=== PATIENT | male | born 1935 | race Caucasian/White ===

== ENCOUNTER → 2020-12-03 12:47 | Outpatient (BNVA) | payer MEDICARE, OTHER, SELFPAY | PROVIDERS: Visit Provider Urology | DX: N39.0 Urinary tract infection, site not specified (principal); N40.1 Benign prostatic hyperplasia with lower urinary tract symptoms; R31.0 Gross hematuria | CPT/HCPCS: 51798; 99212 ==

== ENCOUNTER → 2021-06-03 10:59 | Outpatient (BNVA) | payer MEDICARE, OTHER, SELFPAY | PROVIDERS: PCP Family Medicine; Visit Provider Urology | DX: N40.1 Benign prostatic hyperplasia with lower urinary tract symptoms (principal); C67.9 Malignant neoplasm of bladder, unspecified | CPT/HCPCS: 52000; 99212 ==

== ENCOUNTER 2021-08-08 08:28 | Day surgery (SDC) | payer MEDICARE, OTHER, SELFPAY ==
[2021-08-04 12:17] VITALS: BMI 30.4
[2021-08-04 12:25] VITALS: BP 126/68; PULSE 87; RESP 18; O2SAT 99
--- NOTE | 2021-08-04 12:33 | HO.ANESPROP2 ---
Documented by User: Pooja Mart NP 08/05/21 12:04 HPI - Anesthesia Eval Consult details Narrative: 86yo M for Laser Ablation Prostate w/Green Light Cardiac cleared Eliquis for PAF Hearing aids PMFSH Active Problems Active Problems: All Active Problems (Updated 08/03/21 @ 14:02 by Valarie Bennett RN) Recurrent UTI (urinary tract infection) (Acute) Bladder cancer (Acute) Benign prostatic hyperplasia with lower urinary tract symptoms (Acute) Gross hematuria (Acute) Past Medical History 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 GERD (gastroesophageal reflux disease) Gout Gross hematuria History of ETOH abuse HTN (hypertension) Hx of bladder cancer Hx of gastrointestinal hemorrhage Hyperlipidemia Idiopathic peripheral neuropathy Lumbar spinal stenosis Malignant neoplasm of dome of urinary bladder MRSA (methicillin resistant Staphylococcus aureus) CLAUDE (obstructive sleep apnea) Osteoporosis Poor urinary stream Primary osteoarthritis of right shoulder Rheumatoid arthritis Rotator cuff impingement syndrome Unsteady gait Family History Family history of problems with anesthesia: No Surgical History Surgical History History of back surgery History of left knee replacement History of total right knee replacement Hx of appendectomy Hx of colonoscopy Hx of tonsillectomy Status post reverse total arthroplasty of left shoulder History of Problems with Anesthesia: No Social History Social History Household Members Other:: son Are you a primary home health care social worker to a significant other at home: No Do you presently have visiting nurse or other home services: No Patient Tobacco Use Status: Former Tobacco user Quit Date: 1962 Tobacco use type: Cigarette Use of substances other than those prescribed or required for medical reasons: No Have you been hit, kicked, punched, or otherwise hurt by someone within the past year? If so, by whom?: No Are you DNR?: No Advance Directives: No (will bring DOS) Advance Directives Information Provided: No Advance Directives on File: No Recently lost weight without trying: No Narrative Narrative: No recent illness. No chest pain/SOB with minimal activity - ambulates with a cane or w/c Meds Allergies Allergy/AdvReac Type Severity Reaction Status Date / Time No Known Allergies Allergy Verified 08/04/21 12:12 Home Medications Medication Instructions Recorded Confirmed Last Taken Type apixaban 5 mg tablet 5 mg PO BID 12/03/20 08/04/21 Unknown History finasteride 5 mg tablet 5 mg PO DAILY 12/03/20 08/04/21 Unknown History metoprolol succinate 50 mg 150 mg PO DAILY 12/03/20 08/04/21 Unknown History tablet,extended release 24 hr pantoprazole 40 mg tablet,delayed 40 mg PO DAILY 12/03/20 08/04/21 Unknown History release tamsulosin 0.4 mg capsule 0.8 mg PO DAILY@1700 12/03/20 08/04/21 Unknown History Black 3 1,000 mg PO DAILY 08/04/21 08/04/21 Unknown History acetaminophen 325 mg tablet 650 mg PO Q6H PRN 08/04/21 08/04/21 Unknown History allopurinol 300 mg tablet 300 mg PO DAILY 08/04/21 08/04/21 Unknown History cholecalciferol (vitamin D3) 25 25 mcg PO DAILY 08/04/21 08/04/21 Unknown History mcg (1,000 unit) tablet (Vitamin D3) gabapentin 400 mg tablet 400 mg PO BEDTIME 08/04/21 08/04/21 Unknown History lidocaine TOPICAL DAILY 08/04/21 Unknown History oxycodone-acetaminophen 5 mg-325 1 tab PO Q8H PRN 08/04/21 08/04/21 Unknown History mg tablet (Percocet) pravastatin 20 mg tablet 20 mg PO BEDTIME 08/04/21 08/04/21 Unknown History sennosides 8.6 mg-docusate sodium 1 tab-cap PO BEDTIME PRN 08/04/21 08/04/21 Unknown History 50 mg tablet (Colace 2-In-1) Exam Exam Date and Time: August 04, 2021 1233 Height,Weight and Vital Signs: Height 5 ft 8 in Weight 90.718 kg Last Vital Signs Pulse 87 08/04/21 12:25 Resp 18 08/04/21 12:25 BP 126/68 08/04/21 12:25 Pulse Ox 99 08/04/21 12:25 Pertinent Lab Results Pertinent Lab Results: CBC and BMP from outside facility 06/2021 WNL Narrative Narrative: EKG 07/2021 afib @ 86, RBBB, PVCs, nonspecifict ST-T wave abnormalities ECHO 08/2020 Mild conc LVH Overall LV systolic function is normal with EF 55-60% Cannot assess diastolic function d/t afib LA severely dilated Mild (DALE 1.7cm2) Mild MR No evidence of pulm htn No change c/w 05/2020 ECHO Airway TM Dist: >3cm Neck ROM: Full (OA with tolerable pain) Denture: Lower Loose/Missing/Broken Teeth: No (Upper permanent bridge) Heart: RRR Lungs: CTAB Assessment and Plan Assessment Anesthesia Assessment: Anesthesia Plan Discussed and PAT Visit Final Anesthetic Review Family History of Problems with Anesthesia: No History of Problems with Anesthesia: No Documented by User: Richa Ko MD 08/08/21 10:24 HPI - Anesthesia Eval Consult details Narrative: 86yo M for Laser Ablation Prostate w/Green Light Cardiac cleared Eliquis for PAF. Last dose 08/05/21 Hearing aids PMFSH Active Problems Active Problems: All Active Problems (Updated 08/03/21 @ 14:02 by Valarie Bennett, RN) Recurrent UTI (urinary tract infection) (Acute) Bladder cancer (Acute) Benign prostatic hyperplasia with lower urinary tract symptoms (Acute) Gross hematuria (Acute) Aortic stenosis. Denies dizziness, faintness, chest pain CLAUDE. Has not used/needed CPAP in over 40years. 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 GERD (gastroesophageal reflux disease) Gout Gross hematuria History of ETOH abuse HTN (hypertension) Hx of bladder cancer Hx of gastrointestinal hemorrhage Hyperlipidemia Idiopathic peripheral neuropathy Lumbar spinal stenosis Malignant neoplasm of dome of urinary bladder MRSA (methicillin resistant Staphylococcus aureus) CLAUDE (obstructive sleep apnea) Osteoporosis Poor urinary stream Primary osteoarthritis of right shoulder Rheumatoid arthritis Rotator cuff impingement syndrome Unsteady gait Surgical History Surgical History History of back surgery History of left knee replacement History of total right knee replacement Hx of appendectomy Hx of colonoscopy Hx of tonsillectomy Status post reverse total arthroplasty of left shoulder Social History Social History Household Members Other:: son Are you a primary home health care social worker to a significant other at home: No Do you presently have visiting nurse or other home services: No Patient Tobacco Use Status: Former Tobacco user Quit Date: 1962 Tobacco use type: Cigarette Use of substances other than those prescribed or required for medical reasons: No Have you been hit, kicked, punched, or otherwise hurt by someone within the past year? If so, by whom?: No Are you DNR?: No Advance Directives: No (will bring DOS) Advance Directives Information Provided: No Advance Directives on File: No Recently lost weight without trying: No Meds Allergies Allergy/AdvReac Type Severity Reaction Status Date / Time No Known Allergies Allergy Verified 08/04/21 12:12 Home Medications Medication Instructions Recorded Confirmed Last Taken Type apixaban 5 mg tablet 5 mg PO BID 12/03/20 08/04/21 Unknown History finasteride 5 mg tablet 5 mg PO DAILY 12/03/20 08/04/21 Unknown History metoprolol succinate 50 mg 150 mg PO DAILY 12/03/20 08/04/21 Unknown History tablet,extended release 24 hr pantoprazole 40 mg tablet,delayed 40 mg PO DAILY 12/03/20 08/04/21 Unknown History release tamsulosin 0.4 mg capsule 0.8 mg PO DAILY@1700 12/03/20 08/04/21 Unknown History Black 3 1,000 mg PO DAILY 08/04/21 08/04/21 Unknown History acetaminophen 325 mg tablet 650 mg PO Q6H PRN 08/04/21 08/04/21 Unknown History allopurinol 300 mg tablet 300 mg PO DAILY 08/04/21 08/04/21 Unknown History cholecalciferol (vitamin D3) 25 25 mcg PO DAILY 08/04/21 08/04/21 Unknown History mcg (1,000 unit) tablet (Vitamin D3) gabapentin 400 mg tablet 400 mg PO BEDTIME 08/04/21 08/04/21 Unknown History lidocaine TOPICAL DAILY 08/04/21 Unknown History oxycodone-acetaminophen 5 mg-325 1 tab PO Q8H PRN 08/04/21 08/04/21 Unknown History mg tablet (Percocet) pravastatin 20 mg tablet 20 mg PO BEDTIME 08/04/21 08/04/21 Unknown History sennosides 8.6 mg-docusate sodium 1 tab-cap PO BEDTIME PRN 08/04/21 08/04/21 Unknown History 50 mg tablet (Colace 2-In-1) Exam Height,Weight and Vital Signs: Height 5 ft 8 in Weight 90.718 kg Last Vital Signs Pulse 87 08/04/21 12:25 Resp 18 08/04/21 12:25 BP 126/68 08/04/21 12:25 Pulse Ox 99 08/04/21 12:25 Vital signs 08/08/21 Temp 98.5 Pulse 74 Resp 12-18 BP 149/65 Pulse Ox 99% Airway Mallampati Class: II Assessment and Plan Final Anesthetic Review NPO: Yes ASA Class: III Final Preanesthetic Review: No Changes in Pt Med Stat, Meds/Allgs Chart Reviewed, Consent Obtained/Reviewed and Anes Risks/Benef Reviewed Patient Risk: Intermediate Procedure Risk: Low Assessment/Block/Sedation in SS: Assess/Block/Sedation-SS Anesthetic Plan Anesthetic Plan: GA Disposition: Standard PACU
[2021-08-08] MEDS: levoFLOXacin/D5W 500 MG/100 ML PIGGYBACK 100 MG IV (09:23)
[2021-08-08] MEDS: Lactated Ringers 1,000 ML 50 ML IVCONT (09:24)
--- NOTE | 2021-08-08 11:20 | MHC.SHP ---
Pre-Procedural Eval Section A Date of Service: 08/08/21 Section B Chief Complaint: benign prostatic hyperplasia Details of Present Illness: Recurrent BPH with prostate stones Relevant Social History: None Present Medications: see Short Stay Collaborative assessment Medical History: Significant History History of Previous Operations: Relevant previous surgery/procedure and date(s) Allergies: Allergies Allergy/AdvReac Type Severity Reaction Status Date / Time No Known Allergies Allergy Verified 08/04/21 12:12 Review of Systems Sugical H&P ROS: Negative: Constitution, Cardiovascular, Respiratory, Neurological, Psychiatric, Hem-Onc, Allergic/Immunologic, Gastrointestinal, Genitourinary, Musculoskeletal, Integumentary, Endocrine and Eyes/Ears/Nose/Throat Exam Surgical H&P Exam: Normal: HEENT, Normal: Heart, Normal: Lungs, Normal: Extremities, Normal: Abdomen, Normal: Skin and Normal: Neurological Plan Diagnosis/Plan: Unchanged (Removal of prostate stones and GreenLight laser prostatectomy) I have reviewed the history and physical and performed a pertinent physical examination on my patient. No changes have occurred unless specified.
[2021-08-08 11:35] VITALS: BP 121/72; PULSE 82; RESP 16; TEMP 36.1; O2SAT 99
[2021-08-08 11:40] VITALS: BP 134/79; PULSE 78; RESP 17; O2SAT 100
[2021-08-08 11:45] VITALS: BP 143/86; PULSE 74; RESP 16; O2SAT 100
[2021-08-08 11:50] VITALS: BP 144/76; PULSE 78; RESP 18; O2SAT 100
[2021-08-08 12:05] VITALS: BP 142/83; PULSE 77; RESP 18; O2SAT 96
[2021-08-08 12:20] VITALS: BP 147/65; PULSE 78; RESP 18; TEMP 36.3; O2SAT 96
--- NOTE | 2021-08-10 08:27 | W.PM.OPN ---
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 Prior prostate procedure approximately 5 years ago. Cystoscopy in office showed regrowth of right lateral lobe with significant calcification on the surface of the prostate. Recommendation for GreenLight laser prostate ablation with removal of prostate stones. Procedure: After informed consent was verified the patient was brought to the operating room and placed in a supine position. Anesthesia was administered per protocol. Patient was placed in modified dorsal lithotomy position and prepped and draped in a sterile fashion. Safety pause time-out was confirmed. Antibiotics have been given. Twenty-four [place]uran laser cystoscope was inserted per urethra. No abnormalities found the anterior posterior urethra. The bladder was filled on both ureteric orifices were seen in normal position away from our area of interest. The right lateral lobe had regrown. There was significant calcification on the prostate approximately 1 cm in diameter. Using the GreenLight laser the tissue was ablated behind the calcified area. The calcified area was freed and floated into the bladder. The right lateral lobe was then fully ablated. The median lobe was no longer present in had minimal regrowth. The GreenLight laser was used to make incision on the left portion of the bladder neck at the 3 o'clock position in order to allow full opening of the bladder neck. Both ureteric orifice were seen in Hutch diverticulum bilateral. The bladder was large and capacious. Once the prostate areas had been ablated we had used 85,000 kilojoules. Using a sure catch kidney stone basket the 1 cm calcification that had been freed from the prostate was removed. A 2nd calcification in had also floated into the bladder and this was removed as well. A 22 [place] 30 cc balloon Clarke catheter was placed over stylet into the bladder. Clear efflux was obtained. 30 cc was placed in the balloon and gentle traction was placed. A snap was used to hold tension once the patient will be moved and transported. Once transportation its finish this novel be removed. A belladonna and opiate suppository was placed for postprocedure pain management. He tolerated procedure well was extubated in the operating and transferred in a stable condition to the recovery area. Pathology: Prostate tissue, calcifications Drains: Clarke catheter
== END 2021-08-08 13:05 | disposition home or self-care (01) ==
PROVIDERS: PCP Family Medicine; Visit Provider Urology
PROC: (CPT 52648; principal; 2021-08-08 10:10)
DX: N40.1 Benign prostatic hyperplasia with lower urinary tract symptoms (principal); N32.0 Bladder-neck obstruction; N42.89 Other specified disorders of prostate; N21.0 Calculus in bladder
CPT/HCPCS: 52649; 88305; J1100; J1790; J1956; J2370; J2405; J3010

== ENCOUNTER → 2021-08-11 09:27 | Outpatient (BNVA) | payer MEDICARE, OTHER, SELFPAY | PROVIDERS: PCP Family Medicine; Visit Provider Urology | DX: N40.1 Benign prostatic hyperplasia with lower urinary tract symptoms (principal); N39.0 Urinary tract infection, site not specified | CPT/HCPCS: 51700; 51798 ==

== ENCOUNTER → 2021-08-19 09:36 | Outpatient (BNVA) | payer MEDICARE, OTHER, SELFPAY | PROVIDERS: PCP Family Medicine; Visit Provider Urology | DX: N40.1 Benign prostatic hyperplasia with lower urinary tract symptoms (principal) | CPT/HCPCS: 51700; 51798 ==

== ENCOUNTER 2021-10-07 09:11 | Inpatient (IN) | payer MEDICARE, OTHER, SELFPAY ==
[2021-10-07] VITALS (7 sets, daily range): BP systolic 111–138; BP diastolic 54–71; PULSE 85–102; RESP 14–18; TEMP 36.5–36.8; O2SAT 100; BMI 28.4
--- NOTE | ~2021-10-07 | CT_ITS ---
EXAMINATION: CT CHEST WITHOUT CONTRAST CLINICAL INFORMATION: Acute mental status change COMPARISON: None TECHNIQUE: Multidetector volumetric CT imaging of the chest was done. Axial MIP volume rendering provided. Sagittal and coronal reformatted images were obtained. This CT examination was performed using dose optimization techniques as appropriate, variously including the following: *Automated exposure control *Adjustment of mA and/or kV according to patient size (this includes techniques or standardized protocols for targeted exams where dose is matched to indication/reason for exam; i.e. extremities or head) *Use of iterative reconstruction technique DLP: [address] chest, abdomen and pelvis mGy-cm FINDINGS: LUNGS: Evaluation of the lungs is limited due to artifact from respiratory motion. There are patchy groundglass attenuation infiltrates seen in the left upper lobe and superior segment of the left lower lobe. There is atelectasis or some smaller infiltrates seen in both lower lobes. MEDIASTINUM: The heart is slightly enlarged. There is coronary artery calcification and atherosclerotic disease. There is no pericardial effusion. There are no enlarged hilar or mediastinal lymph nodes. PLEURA: There is a small right pleural effusion. There is no pneumothorax. AXILLA: No chest wall mass or enlarged axillary lymph nodes are seen. UPPER ABDOMEN: Unremarkable. OSSEOUS STRUCTURES: There are multiple right-sided rib fractures of varying ages. There are lateral and posterior fractures of the right third through 10th ribs. Seventh through 10th posterior right rib fractures appear the most recent. There is extensive orthopedic hardware seen with post rods and interpedicular screws seen at T4, T5 T6 T7 T10 and T11-T12 and L1. Orthopedic hardware appears intact. There is a mild T8 vertebral body compression fracture. There are vertebroplasty changes of the T9 and T10 vertebral bodies. There is a mild T12 compression fracture. There is a left shoulder replacement. 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 CT/CT chest wo con IMPRESSION: Limited exam due to motion artifact. Nonspecific groundglass attenuation infiltrates in the left upper lobe and superior segment of the left lower lobe. Bibasilar small infiltrates or atelectasis. Small right pleural effusion. No pneumothorax. Multiple right-sided rib fractures of varying ages. Most recent rib fractures are posterior seventh through 10th rib fractures. Extensive orthopedic hardware in the thoracic spine. Fleischner guidelines were followed.
--- NOTE | ~2021-10-07 | CT_ITS ---
EXAMINATION: CT HEAD WITHOUT CONTRAST CLINICAL INFORMATION: Acute mental status change and hallux with COMPARISON: None TECHNIQUE: Contiguous axial imaging was performed from the skull base to vertex without intravenous administration of contrast. This CT examination was performed using dose optimization techniques as appropriate, variously including the following: *Automated exposure control *Adjustment of mA and/or kV according to patient size (this includes techniques or standardized protocols for targeted exams where dose is matched to indication/reason for exam; i.e. extremities or head) *Use of iterative reconstruction technique DLP: 765 mGy-cm FINDINGS: There is no evidence of an extra-axial collection. There is no evidence of intra or extra-axial hemorrhage. Ventricles and extra-axial CSF spaces are prominent suggestive of mild generalized atrophy. There is nonspecific periventricular white matter disease. No mass, mass effect or infarct is seen. Review of bone windows is normal. No skull fracture is seen. Visualized paranasal sinuses, mastoid air cells and middle ears are clear.. CT/CT head/brain wo con IMPRESSION: No acute intracranial findings. Generalized atrophy and nonstress the periventricular white matter disease.
--- NOTE | ~2021-10-07 | CT_ITS ---
EXAMINATION: CT ABDOMEN AND PELVIS WITHOUT CONTRAST CLINICAL INFORMATION: Acute mental status change. Recent fall. COMPARISON: None TECHNIQUE: Multidetector volumetric imaging was performed from the superior aspect of the liver through the pubic symphysis. Sagittal and coronal reformatted images were obtained on the technologist's workstation. This CT examination was performed using dose optimization techniques as appropriate, variously including the following: *Automated exposure control *Adjustment of mA and/or kV according to patient size (this includes techniques or standardized protocols for targeted exams where dose is matched to indication/reason for exam; i.e. extremities or head) *Use of iterative reconstruction technique DLP: 1148 mGy-cm FINDINGS: LUNG BASES: The visualized lung bases are unremarkable. LIVER, GALLBLADDER, AND BILIARY TREE: The liver is normal in size, shape, and attenuation. No focal hepatic lesion or biliary ductal dilatation is present. The gallbladder is slightly distended measuring 5 x 12 cm in dimension. There is question of a small gallstone in the neck of the gallbladder or cystic duct, for example coronal reconstructed image 44 measuring 5 mm. PANCREAS: Unremarkable. SPLEEN: Unremarkable. ADRENAL GLANDS: Unremarkable. KIDNEYS AND URETERS: There is a nephrostomy tube in the left kidney. There is a lesion exophytic to the anterior lower pole left kidney that measures 1 cm. This is difficult to characterize. The right kidney is unremarkable. BLADDER: There is a Clarke catheter seen in the pelvis. Location is uncertain. This may be in an empty bladder with focal right lateral and inferior bladder wall thickening and the prostate and gland having been removed. GASTROINTESTINAL TRACT: There is diverticulosis of the colon. There are fluid-filled loops of small and large bowel suggestive of an ileus. There is no evidence of free air or free fluid or obstruction. The appendix is not seen. ABDOMINAL WALL: There is a large high attenuation soft tissue mass in the left rectus muscle suggestive of a hematoma. This measures 6 x 10 x 9 cm. There are bilateral inguinal hernias containing fat. LYMPH NODES: Normal. VASCULAR: There is evidence of atherosclerotic disease. PELVIC VISCERA: There is a high attenuation soft tissue mass in the left pelvis suggestive of a hematoma. This measures 7 x 10 x 9 cm in transverse AP and longitudinal dimension. OSSEOUS STRUCTURES: There is extensive orthopedic hardware in the lumbar spine and bilateral iliac bones from L1 to S1 with posterior fusion hardware and interpedicular screws. There is orthopedic hardware in the visualized lower thoracic spine. There are T10 and T12 vertebral body compression fracture. There are post vertebroplasty changes in the T9 and T10 vertebral bodies. CT/CT abdomen pelvis wo con IMPRESSION: Large left rectus muscle and pelvic hematomas. Clarke catheter seen in the pelvis, question position. The Clarke catheter may be positioned in an empty bladder with focal right lateral and inferior wall thickening. The prostate gland may been removed. Clinical correlation recommended. Left nephrostomy tube in satisfactory position. No hydronephrosis. Diverticulosis of the colon and fluid-filled loops of small and large bowel suggestive of an ileus. Distended gallbladder and question small gallstone.. Fleischner guidelines were followed.
--- NOTE | 2021-10-07 09:35 | ECG_ITS ---
Test Reason : AMS Blood Pressure : / mmHG Vent. Rate : 085 BPM Atrial Rate : 000 BPM P-R Int : 000 ms QRS Dur : 146 ms QT Int : 392 ms P-R-T Axes : 000 034 -45 degrees QTc Int : 466 ms Atrial fibrillation Right bundle branch block T wave abnormality, consider inferior ischemia Abnormal ECG No previous ECGs available Referred By: Verena Champagne Electronically Signed By:REECE LOUISE MD
--- NOTE | 2021-10-07 09:44 | ED.AMS ---
HPI - Altered Mental Status General Chief Complaint: Altered Mental Status Stated Complaint: ams Time Seen by Provider: 10/07/21 09:31 Source: patient and old records reviewed Mode of arrival: EMS Limitations: no limitations History of Present Illness HPI narrative: [place] [facility] [place] from [facility] as a trauma acute rib fractures, R sided hemothoraax, manubrial fx - ended up finding ESBL + UTI on meropenem completed course, developed afib with RVR - digoxin and eliquis, ileus s/p ex lap for internal hernia 09/04. ended up with hypotension on pressors had pelvic hematoma requiring transfusion 1 unit PRBCs s/p L sided nephrostomy tube for due to hydronephrosis admit to SNF on 10/02 MD complaint: altered mental status and decreased responsiveness Onset (ago): day(s) (this AM ) Timing confirmed by: caregiver Severity: moderate Consistency of symptoms: unknown Context: other (long illness at [facility] diarrhea x 2 overnight had constipation given medications) Associated symptoms: denies other symptoms Related Data Home Medications Medication Instructions Recorded Confirmed [place] 3 1,000 mg PO DAILY 08/04/21 10/07/21 gabapentin 400 mg tablet 800 mg PO BEDTIME 08/04/21 10/07/21 oxycodone-acetaminophen 5 mg-325 1 tab PO Q8H PRN 08/04/21 10/07/21 mg tablet (Percocet) pravastatin 20 mg tablet 20 mg PO BEDTIME 08/04/21 10/07/21 sennosides 8.6 mg-docusate sodium 1 tab-cap PO BEDTIME PRN 08/04/21 10/07/21 50 mg tablet (Colace 2-In-1) apixaban 5 mg tablet 5 mg PO BID 10/07/21 10/07/21 docusate sodium 100 mg capsule 100 mg PO BID 10/07/21 10/07/21 finasteride 5 mg tablet 5 mg PO DAILY 10/07/21 10/07/21 metoprolol succinate 50 mg 150 mg PO DAILY 10/07/21 10/07/21 tablet,extended release 24 hr pantoprazole 40 mg tablet,delayed 40 mg PO DAILY 10/07/21 10/07/21 release tamsulosin 0.4 mg capsule 0.4 mg PO DAILY 10/07/21 10/07/21 Previous Rx's Medication Instructions Recorded ascorbic acid (vitamin C) 1,000 mg 1 g PO DAILY 90 Days #90 tab 12/03/20 tablet methenamine hippurate 1 gram tablet 1 g PO BID 90 Days #180 tab 12/03/20 Allergies Allergy/AdvReac Type Severity Reaction Status Date / Time No Known Allergies Allergy Verified 08/04/21 12:12 Review of Systems Review of Systems: Constitutional : No Weight loss, No Fever, No Chills, No Fatigue, No Malaise ENT/Mouth : No sore throat, No Rhinorrhea Eyes: No Eye Pain, No Swelling, No Redness Cardiovascular : No Chest Pain, No SOB, No Dyspnea on Exertion, No Orthopnea, No Edema, No Palpitations Respiratory : No Cough, No Sputum, No Wheezing Gastrointestinal : No Nausea, No Vomiting, No Diarrhea, No Constipation, No abdominal Pain, No Hematochezia, No Melena Genitourinary : No Dysuria, No Urinary Frequency, No Hematuria, Musculoskeletal : No joint pain, No Myalgias, No Joint Swelling Skin : No Skin Lesions, No rash Neuro : pos Weakness, No Numbness, No Dizziness, No Headache Psych : No Anxiety/Panic, No Depression Heme/Lymph: No Bruising, No Bleeding,No Lymphadenopathy Endocrine : No Polyuria, No Polydipsia All other systems reviewed and are negative PMFSH Past Medical History Attestation statement: The following information was validated with the patient. 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 GERD (gastroesophageal reflux disease) Gout Gross hematuria History of ETOH abuse HTN (hypertension) Hx of bladder cancer Hx of gastrointestinal hemorrhage Hyperlipidemia Idiopathic peripheral neuropathy Intestinal obstruction Lumbar spinal stenosis Malignant neoplasm of dome of urinary bladder MRSA (methicillin resistant Staphylococcus aureus) CLAUDE (obstructive sleep apnea) Osteoporosis Poor urinary stream Primary osteoarthritis of right shoulder Rheumatoid arthritis Rotator cuff impingement syndrome Unsteady gait Surgical History History of back surgery History of left knee replacement History of total right knee replacement Hx of appendectomy Hx of colonoscopy Hx of tonsillectomy Status post reverse total arthroplasty of left shoulder Social History Social History Household Members Other:: son Are you a primary manager critical care unit to a significant other at home: No Do you presently have visiting nurse or other home services: No Alcohol intake: never Patient Tobacco Use Status: Former Tobacco user Quit Date: 1962 Tobacco use type: Cigarette Use of substances other than those prescribed or required for medical reasons: No Advance Directives: No Advance Directives Information Provided: No Physical Exam Vital Signs: Vital Signs: Last Vital Signs Temp 97.7 F 10/07/21 16:00 Pulse 89 10/07/21 16:00 Resp 18 10/07/21 16:00 BP 121/57 L 10/07/21 16:00 Pulse Ox 100 10/07/21 16:00 Oxygen Flow Rate 2 10/07/21 09:27 BMI result Body Mass Index 28.4 Appearance: Alert. Oriented X3. No acute distress. appears weak Eyes: Pupils equal, round and reactive to light. ENT: Pharynx moderately dry Neck: Normal inspection. Neck supple. CVS: Normal heart rate and rhythm. Pulses normal. Respiratory: No respiratory distress. Breath sounds normal. Abdomen: Soft and nontender. midline incision c/d/i. appears distended Back: L nephrostomy tube ss but some bloody drainage in tube noted site itself is c/d/i Skin: Skin warm and dry. Normal skin color. poor skin turgor. Extremities: No lower extremity edema. No calf ttp Neuro: Oriented X 3. No motor deficit. No sensory deficit. Course Course Course Narrative: empiric meropenem for HCAP has ileus H/H stable - has hematomas Message sent to Dr. Crenshaw about willard - reposition willard it is not in bladder but in prostate - RN notified Message sent to Dr. Atkins regarding CT scan - will follow no acute interventions trend H/H MDM - Altered Mental Status MDM Narrative Medical decision making narrative: 86 yo female with hx of ESBL+ UTI, nephrostomy tube for hydronephrosis L side, bladder cancer, rib fractures, afib on digoxin and eliquis, recent internal hernia and ileus requiring ex lap on 09/04 complicated stay at [facility] [place] transfusions, pressors - at this time sent by SNF who state he is unresponsive and altered on arrival here is diffusely weak but oriented x 3 and no focal deficits. At this time labs, UA, CT scan of head/chest/abdomen for ICH/infection. He is not altered or unresponsive and is talking to me without issue. Lab Data Result diagrams: 10/07/21 10:46 10/07/21 10:46 Labs: Lab Results 10/07/21 10/07/21 10/07/21 Range/Units 10:46 10:46 10:46 WBC 6.7 (4.8-10.8) X10*3/uL RBC 3.74 L (4.60-5.80) X10*6/uL Hgb 10.5 L (14.0-18.0) g/dl Hct 35.2 L (42.0-52.0) % MCV 94.1 (80.0-98.0) fL MCH 28.1 (27.0-33.0) pg MCHC 29.8 L (31.0-36.0) g/dl RDW 17.1 H (11.0-16.0) % Plt Count 392 (160-400) X10*3/uL MPV 10.2 (9.4-12.4) fL Immature Gran % (Auto) 0.6 H (0.0-0.4) % Neut % (Auto) 65.7 (45-73) % Lymph % (Auto) 16.8 L (20-40) % [place] % (Auto) 10.7 (2-11) % Eos % (Auto) 5.5 H (0-4) % Baso % (Auto) 0.7 (0-2) % Lymph # (Auto) 1.1 L (1.2-4.9) X10*3/uL [place] # (Auto) 0.7 (0.1-1.2) X10*3/uL Eos # (Auto) 0.4 (0.0-0.4) X10*3/uL Baso # (Auto) 0.1 (0.0-0.2) X10*3/uL Abs Immat Gran (auto) 0.04 H (0.00-0.03) X10*3/uL Absolute Neuts (auto) 4.4 (2.0-8.3) x10*3/uL Absolute Nucleated RBC 0.000 (0.0-0.012) X10*3/uL Nucleated RBC % (auto) 0.0 (0.0-0.2) /100WBC PT 19.6 H (9.9-13.0) SEC INR 1.7 H (0.9-1.1) APTT 40.1 H (24.1-38.0) SEC VBG pH (7.32-7.43) VBG pCO2 mmHg VBG pO2 mmHg VBG HCO3 (22-26) mmol/L VBG O2 Saturation % VBG Base Excess mmol/L Sodium 141 (135-145) mmol/L Potassium 4.6 (3.3-5.1) mmol/L Chloride 105 (96-108) mmol/L Carbon Dioxide 30 H (22-29) mmol/L Anion Gap 11 L (12-20) BUN 12 (9-16) mg/dL Creatinine 0.72 (0.5-1.4) mg/dL Estim Creat Clear Calc 84.6 Estimated GFR > 60 Random Glucose 101 (60-115) mg/dL Lactic Acid (0.5-2.0) mmol/L Calcium 8.3 L (8.4-10.2) mg/dL Magnesium 2.1 (1.6-2.6) mg/dL Total Bilirubin 0.9 (0.0-1.0) mg/dL Direct Bilirubin 0.5 (0.0-0.5) mg/dL AST 20 (5-37) U/L ALT 24 (0-40) U/L Alkaline Phosphatase 97 (39-117) U/L Troponin I High Sens (<3.5-35.0) ng/L Total Protein 5.5 L (6.5-8.0) g/dL Albumin 2.5 L (3.5-5.0) g/dL Lipase 30 (8-78) U/L Urine Color Urine Appearance Urine pH (5.0-8.0) Ur Specific [place] (1.005-1.025) Urine Protein (NEG-TRACE) MG/DL Urine Glucose (UA) (NEG) MG/DL Urine Ketones (NEG) MG/DL Urine Blood (NEG) Urine Nitrite (NEG) Ur Leukocyte Esterase (NEG) Urine RBC (0) /HPF Urine WBC (0-4) /HPF Ur Squamous Epith Cells /LPF Amorphous Sediment /LPF Urine Bacteria /LPF Urine Mucus /LPF Digoxin (0.8-2.0) ng/mL COVID-19 ([place]) (Negative) COVID-19 Clin Com Blood Type Antibody Screen 10/07/21 10/07/21 10/07/21 Range/Units 10:46 10:46 10:46 WBC (4.8-10.8) X10*3/uL RBC (4.60-5.80) X10*6/uL Hgb (14.0-18.0) g/dl Hct (42.0-52.0) % MCV (80.0-98.0) fL MCH (27.0-33.0) pg MCHC (31.0-36.0) g/dl RDW (11.0-16.0) % Plt Count (160-400) X10*3/uL MPV (9.4-12.4) fL Immature Gran % (Auto) (0.0-0.4) % Neut % (Auto) (45-73) % Lymph % (Auto) (20-40) % [place] % (Auto) (2-11) % Eos % (Auto) (0-4) % Baso % (Auto) (0-2) % Lymph # (Auto) (1.2-4.9) X10*3/uL [place] # (Auto) (0.1-1.2) X10*3/uL Eos # (Auto) (0.0-0.4) X10*3/uL Baso # (Auto) (0.0-0.2) X10*3/uL Abs Immat Gran (auto) (0.00-0.03) X10*3/uL Absolute Neuts (auto) (2.0-8.3) x10*3/uL Absolute Nucleated RBC (0.0-0.012) X10*3/uL Nucleated RBC % (auto) (0.0-0.2) /100WBC PT (9.9-13.0) SEC INR (0.9-1.1) APTT (24.1-38.0) SEC VBG pH (7.32-7.43) VBG pCO2 mmHg VBG pO2 mmHg VBG HCO3 (22-26) mmol/L VBG O2 Saturation % VBG Base Excess mmol/L Sodium (135-145) mmol/L Potassium (3.3-5.1) mmol/L Chloride (96-108) mmol/L Carbon Dioxide (22-29) mmol/L Anion Gap (12-20) BUN (9-16) mg/dL Creatinine (0.5-1.4) mg/dL Estim Creat Clear Calc Estimated GFR Random Glucose (60-115) mg/dL Lactic Acid 0.9 (0.5-2.0) mmol/L Calcium (8.4-10.2) mg/dL Magnesium (1.6-2.6) mg/dL Total Bilirubin (0.0-1.0) mg/dL Direct Bilirubin (0.0-0.5) mg/dL AST (5-37) U/L ALT (0-40) U/L Alkaline Phosphatase (39-117) U/L Troponin I High Sens 8.3 (<3.5-35.0) ng/L Total Protein (6.5-8.0) g/dL Albumin (3.5-5.0) g/dL Lipase (8-78) U/L Urine Color Urine Appearance Urine pH (5.0-8.0) Ur Specific [place] (1.005-1.025) Urine Protein (NEG-TRACE) MG/DL Urine Glucose (UA) (NEG) MG/DL Urine Ketones (NEG) MG/DL Urine Blood (NEG) Urine Nitrite (NEG) Ur Leukocyte Esterase (NEG) Urine RBC (0) /HPF Urine WBC (0-4) /HPF Ur Squamous Epith Cells /LPF Amorphous Sediment /LPF Urine Bacteria /LPF Urine Mucus /LPF Digoxin 0.9 (0.8-2.0) ng/mL COVID-19 ([place]) (Negative) COVID-19 Clin Com Blood Type Antibody Screen 10/07/21 10/07/21 10/07/21 Range/Units 10:51 11:23 11:23 WBC (4.8-10.8) X10*3/uL RBC (4.60-5.80) X10*6/uL Hgb (14.0-18.0) g/dl Hct (42.0-52.0) % MCV (80.0-98.0) fL MCH (27.0-33.0) pg MCHC (31.0-36.0) g/dl RDW (11.0-16.0) % Plt Count (160-400) X10*3/uL MPV (9.4-12.4) fL Immature Gran % (Auto) (0.0-0.4) % Neut % (Auto) (45-73) % Lymph % (Auto) (20-40) % [place] % (Auto) (2-11) % Eos % (Auto) (0-4) % Baso % (Auto) (0-2) % Lymph # (Auto) (1.2-4.9) X10*3/uL [place] # (Auto) (0.1-1.2) X10*3/uL Eos # (Auto) (0.0-0.4) X10*3/uL Baso # (Auto) (0.0-0.2) X10*3/uL Abs Immat Gran (auto) (0.00-0.03) X10*3/uL Absolute Neuts (auto) (2.0-8.3) x10*3/uL Absolute Nucleated RBC (0.0-0.012) X10*3/uL Nucleated RBC % (auto) (0.0-0.2) /100WBC PT (9.9-13.0) SEC INR (0.9-1.1) APTT (24.1-38.0) SEC VBG pH 7.38 (7.32-7.43) VBG pCO2 53 mmHg VBG pO2 37 mmHg VBG HCO3 32 H (22-26) mmol/L VBG O2 Saturation 51.0 % VBG Base Excess 6.3 mmol/L Sodium (135-145) mmol/L Potassium (3.3-5.1) mmol/L Chloride (96-108) mmol/L Carbon Dioxide (22-29) mmol/L Anion Gap (12-20) BUN (9-16) mg/dL Creatinine (0.5-1.4) mg/dL Estim Creat Clear Calc Estimated GFR Random Glucose (60-115) mg/dL Lactic Acid (0.5-2.0) mmol/L Calcium (8.4-10.2) mg/dL Magnesium (1.6-2.6) mg/dL Total Bilirubin (0.0-1.0) mg/dL Direct Bilirubin (0.0-0.5) mg/dL AST (5-37) U/L ALT (0-40) U/L Alkaline Phosphatase (39-117) U/L Troponin I High Sens (<3.5-35.0) ng/L Total Protein (6.5-8.0) g/dL Albumin (3.5-5.0) g/dL Lipase (8-78) U/L Urine Color [place]BROWN DK YELLOW Urine Appearance [place] Urine pH 6.5 6.5 (5.0-8.0) Ur Specific [place] 1.025 1.020 (1.005-1.025) Urine Protein 2+ H 2+ H (NEG-TRACE) MG/DL Urine Glucose (UA) NEG NEG (NEG) MG/DL Urine Ketones NEG NEG (NEG) MG/DL Urine Blood 3+ H 3+ H (NEG) Urine Nitrite POS H NEG (NEG) Ur Leukocyte Esterase 2+ H 1+ H (NEG) Urine RBC TNTC H TNTC H (0) /HPF Urine WBC 5-9 H 1-4 (0-4) /HPF Ur Squamous Epith Cells NONE NONE /LPF Amorphous Sediment 2+ /LPF Urine Bacteria TRACE NONE /LPF Urine Mucus TRACE /LPF Digoxin (0.8-2.0) ng/mL COVID-19 ([place]) (Negative) COVID-19 Clin Com Blood Type Antibody Screen 10/07/21 10/07/21 Range/Units 11:31 13:01 WBC (4.8-10.8) X10*3/uL RBC (4.60-5.80) X10*6/uL Hgb (14.0-18.0) g/dl Hct (42.0-52.0) % MCV (80.0-98.0) fL MCH (27.0-33.0) pg MCHC (31.0-36.0) g/dl RDW (11.0-16.0) % Plt Count (160-400) X10*3/uL MPV (9.4-12.4) fL Immature Gran % (Auto) (0.0-0.4) % Neut % (Auto) (45-73) % Lymph % (Auto) (20-40) % [place] % (Auto) (2-11) % Eos % (Auto) (0-4) % Baso % (Auto) (0-2) % Lymph # (Auto) (1.2-4.9) X10*3/uL [place] # (Auto) (0.1-1.2) X10*3/uL Eos # (Auto) (0.0-0.4) X10*3/uL Baso # (Auto) (0.0-0.2) X10*3/uL Abs Immat Gran (auto) (0.00-0.03) X10*3/uL Absolute Neuts (auto) (2.0-8.3) x10*3/uL Absolute Nucleated RBC (0.0-0.012) X10*3/uL Nucleated RBC % (auto) (0.0-0.2) /100WBC PT (9.9-13.0) SEC INR (0.9-1.1) APTT (24.1-38.0) SEC VBG pH (7.32-7.43) VBG pCO2 mmHg VBG pO2 mmHg VBG HCO3 (22-26) mmol/L VBG O2 Saturation % VBG Base Excess mmol/L Sodium (135-145) mmol/L Potassium (3.3-5.1) mmol/L Chloride (96-108) mmol/L Carbon Dioxide (22-29) mmol/L Anion Gap (12-20) BUN (9-16) mg/dL Creatinine (0.5-1.4) mg/dL Estim Creat Clear Calc Estimated GFR Random Glucose (60-115) mg/dL Lactic Acid (0.5-2.0) mmol/L Calcium (8.4-10.2) mg/dL Magnesium (1.6-2.6) mg/dL Total Bilirubin (0.0-1.0) mg/dL Direct Bilirubin (0.0-0.5) mg/dL AST (5-37) U/L ALT (0-40) U/L Alkaline Phosphatase (39-117) U/L Troponin I High Sens (<3.5-35.0) ng/L Total Protein (6.5-8.0) g/dL Albumin (3.5-5.0) g/dL Lipase (8-78) U/L Urine Color Urine Appearance Urine pH (5.0-8.0) Ur Specific [place] (1.005-1.025) Urine Protein (NEG-TRACE) MG/DL Urine Glucose (UA) (NEG) MG/DL Urine Ketones (NEG) MG/DL Urine Blood (NEG) Urine Nitrite (NEG) Ur Leukocyte Esterase (NEG) Urine RBC (0) /HPF Urine WBC (0-4) /HPF Ur Squamous Epith Cells /LPF Amorphous Sediment /LPF Urine Bacteria /LPF Urine Mucus /LPF Digoxin (0.8-2.0) ng/mL COVID-19 ([facility]) Negative (Negative) COVID-19 Clin Com See Note Blood Type O Positive Antibody Screen NEGATIVE ECG Data ECG #1: Attestation: I personally reviewed and interpreted this ECG as follows: ECG interpretation date: 10/07/21 ECG interpretation time: 10:24 Interpretation: Rate: 85 Rhythm: afib [place]: normal RBBB ST T wave : no GILBERTO, nonspecific qTC: prolonged prior studies: none, reported to have old RBB on prior EKGs The study has been interpreted contemporaneously by me. . Discharge Plan Discharge Clinical Impression: Weakness Displacement of Willard catheter Qualifiers: Encounter type: initial encounter Qualified Code(s): T83.021A - Displacement of indwelling urethral catheter, initial encounter Pneumonia Qualifiers: Pneumonia type: due to unspecified organism Laterality: bilateral Lung location: unspecified part of lung Qualified Code(s): J18.9 - Pneumonia, unspecified organism Hematoma of rectus sheath Qualifiers: Encounter type: initial encounter Qualified Code(s): S30.1XXA - Contusion of abdominal wall, initial encounter Patient Disposition: Admitted As Inpatient
[2021-10-07] MEDS: 0.9 % Sodium Chloride 1,000 ML 999 ML IVCONT (10:16)
[2021-10-07 10:54] LABS: MANUAL DIFF FLAG NO
[2021-10-07 10:55] LABS: Basophils Absolute Auto 0.1 X10*3/uL (0.0-0.2); Basophils Percent Auto 0.7 % (0-2); Eosinophils Absolute Auto 0.4 X10*3/uL (0.0-0.4); Eosinophils Percent Auto 5.5 % (0-4); Hematocrit 35.2 % (42.0-52.0); Hemoglobin 10.5 g/dl (14.0-18.0); Imm Gran Abs Auto 0.04 X10*3/uL (0.00-0.03); Imm Gran Pct Auto 0.6 % (0.0-0.4); Lymphocytes Absolute Auto 1.1 X10*3/uL (1.2-4.9); Lymphocytes Percent Auto 16.8 % (20-40); Mean Corpuscular HGB Conc 29.8 g/dl (31.0-36.0); Mean Corpuscular Hemoglobin 28.1 pg (27.0-33.0); Mean Corpuscular Volume 94.1 fL (80.0-98.0); Mean Platelet Volume 10.2 fL (9.4-12.4); Monocytes Absolute Auto 0.7 X10*3/uL (0.1-1.2); Monocytes Percent Auto 10.7 % (2-11); Neutrophils Absolute Auto 4.4 x10*3/uL (2.0-8.3); Neutrophils Percent Auto 65.7 % (45-73); Platelet Count 392 X10*3/uL (160-400); Red Blood Count 3.74 X10*6/uL (4.60-5.80); Red Cell Distribution Width 17.1 % (11.0-16.0); White Blood Count 6.7 X10*3/uL (4.8-10.8)
[2021-10-07 11:00] LABS: VBG Base Excess 6.3 mmol/L; VBG HCO3 32 mmol/L (22-26); VBG pCO2 53 mmHg; VBG pH 7.38 (7.32-7.43); VBG pO2 37 mmHg
[2021-10-07 11:04] LABS: Lactic Acid 0.9 mmol/L (0.5-2.0)
[2021-10-07 11:05] LABS: Venous Blood Gas Refer to POC result
[2021-10-07 11:08] LABS: INTERNATIONAL NORM RATIO 1.7 (0.9-1.1); Prothrombin Time 19.6 SEC (9.9-13.0)
[2021-10-07 11:11] LABS: Partial Thromboplastin Time 40.1 SEC (24.1-38.0)
[2021-10-07 11:16] LABS: Alanine Aminotransferase 24 U/L (0-40); Albumin Level 2.5 g/dL (3.5-5.0); Alkaline Phosphatase 97 U/L (39-117); Anion Gap 11 (12-20); Aspartate Amino Transferase 20 U/L (5-37); Bilirubin Direct 0.5 mg/dL (0.0-0.5); Bilirubin Total 0.9 mg/dL (0.0-1.0); Blood Urea Nitrogen 12 mg/dL (9-16); Calcium 8.3 mg/dL (8.4-10.2); Carbon Dioxide 30 mmol/L (22-29); Chloride 105 mmol/L (96-108); Creatinine Clr Calc Pharmacy 84.6; Estimated Glomerular Filt Rate > 60; Glucose Random 101 mg/dL (60-115); Lipase 30 U/L (8-78); Magnesium 2.1 mg/dL (1.6-2.6); Potassium 4.6 mmol/L (3.3-5.1); Sodium 141 mmol/L (135-145); Total Protein 5.5 g/dL (6.5-8.0)
[2021-10-07 11:21] LABS: Troponin-I High Sensitivity 8.3 ng/L (<3.5-35.0)
[2021-10-07 11:44] LABS: Appearance Urine CLOUDY; Appearance Urine HAZY; Color Urine DK YELLOW; Glucose Urine UA NEG (NEG); Leukocyte Esterase Urine 1+ (NEG); Leukocyte Esterase Urine 2+ (NEG); Nitrite Urine NEG (NEG); Nitrite Urine POS (NEG); PH 6.5 (5.0-8.0); Specific Gravity - Urine 1.025 (1.005-1.025); UACC Culture Trigger YES; Urine Blood 3+ (NEG); Urine Ketones NEG (NEG); Urine Protein 2+ MG/DL (NEG-TRACE)
[2021-10-07 11:50] LABS: COVID-19 Test Negative (Negative)
--- NOTE | 2021-10-07 12:03 | PM.CNGS ---
History of Present Illness Consult details Consult date: 10/07/21 Narrative: 86M with multiple medical problems, including atrial fib, bladder cancer with a nephrostomy tube and an indwelling Clarke, sent to the ED by the [facility] for altered mental status. He underwent workup in the ED with a CT scan showing a large hematoma in the rectus, as well as the pelvis. The patient currently seems to be back to his baseline mental status. He appears very frail and weak, but does answer very simple questions. He is not a a good historian and does not know why he was brought to the ED. He had also undergone ex lap for an internal hernia in [facility] last September 14, 2021. He had recent atrial fibrillation with RVR so he was started on Eliquis. He currenly denies abdominal pain. He has had an indwelling Clarke catheter as well as a nephrostomy tube on the left. He has a hx of superficial bladder cancer as well as BPH. He apparently has had prostatectomy before as well. 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 GERD (gastroesophageal reflux disease) Gout Gross hematuria History of ETOH abuse HTN (hypertension) Hx of bladder cancer Hx of gastrointestinal hemorrhage Hyperlipidemia Idiopathic peripheral neuropathy Intestinal obstruction Lumbar spinal stenosis Malignant neoplasm of dome of urinary bladder MRSA (methicillin resistant Staphylococcus aureus) CLAUDE (obstructive sleep apnea) Osteoporosis Poor urinary stream Primary osteoarthritis of right shoulder Rheumatoid arthritis Rotator cuff impingement syndrome Unsteady gait Surgical History Surgical History History of back surgery History of left knee replacement History of total right knee replacement Hx of appendectomy Hx of colonoscopy Hx of tonsillectomy Status post reverse total arthroplasty of left shoulder Social History Social History Household Members: Other Household Members Other:: son Housing: Long Term Are you a primary mall plant caretaker to a significant other at home: No Do you presently have visiting nurse or other home services: No Alcohol intake: never Patient Tobacco Use Status: Former Tobacco user Quit Date: 1962 Tobacco use type: Cigarette e-Cigarette/Vaping Use: Former Use Current occupational status: retired Meds Allergies Allergy/AdvReac Type Severity Reaction Status Date / Time No Known Allergies Allergy Verified 08/04/21 12:12 Active Medications: Current Medications Meropenem 1 gm/ Sodium (Chloride) 100 mls @ 100 mls/hr IV ONCE ONE Stop: 10/07/21 12:30 Pharmacy Consult (Consult Rx Perform Med Rec) 1 each MISCELLANE ONCE PRN PRN Reason: Consult order Home Medications Medication Instructions Recorded Confirmed Last Taken Type [place] Gap 3 1,000 mg PO DAILY 08/04/21 10/07/21 Unknown History oxycodone-acetaminophen 5 mg-325 1 tab PO Q8H PRN 08/04/21 10/07/21 Unknown History mg tablet (Percocet) pravastatin 20 mg tablet 20 mg PO BEDTIME 08/04/21 10/07/21 Unknown History sennosides 8.6 mg-docusate sodium 1 tab-cap PO BEDTIME PRN 08/04/21 10/07/21 Unknown History 50 mg tablet (Colace 2-In-1) apixaban 5 mg tablet 5 mg PO BID 10/07/21 10/07/21 Unknown History docusate sodium 100 mg capsule 100 mg PO BID 10/07/21 10/07/21 Unknown History finasteride 5 mg tablet 5 mg PO DAILY 10/07/21 10/07/21 Unknown History metoprolol succinate 50 mg 150 mg PO DAILY 10/07/21 10/07/21 Unknown History tablet,extended release 24 hr pantoprazole 40 mg tablet,delayed 40 mg PO DAILY 10/07/21 10/07/21 Unknown History release tamsulosin 0.4 mg capsule 0.4 mg PO DAILY 10/07/21 10/07/21 Unknown History Physical Exam Vital Signs: Vital Signs: Last Vital Signs Temp 98.2 F 10/07/21 09:27 Pulse 87 10/07/21 09:27 Resp 16 10/07/21 09:27 BP 111/54 L 12/17/21 09:27 Pulse Ox 100 10/07/21 09:27 Oxygen Flow Rate 2 10/07/21 09:27 BMI result Body Mass Index 28.4 very frail looking, answerrs some simple questions Const: General: comfortable and no acute distress Resp: Effort & Inspection: normal respiratory effort Cardio: Rhythm: abnormal rhythm GI: Palpation (GI): Soft to palpation, not firm, nontender and no guarding : Other: has nephrostomy tube and Clarke Results Labs Result diagrams: 10/09/21 06:55 10/09/21 06:55 Labs: Abnormal lab results 10/07/21 10/07/21 10/07/21 Range/Units 10:46 10:46 10:46 RBC 3.74 L (4.60-5.80) X10*6/uL Hgb 10.5 L (14.0-18.0) g/dl Hct 35.2 L (42.0-52.0) % MCHC 29.8 L (31.0-36.0) g/dl RDW 17.1 H (11.0-16.0) % Immature Gran % (Auto) 0.6 H (0.0-0.4) % Lymph % (Auto) 16.8 L (20-40) % Eos % (Auto) 5.5 H (0-4) % Lymph # (Auto) 1.1 L (1.2-4.9) X10*3/uL Abs Immat Gran (auto) 0.04 H (0.00-0.03) X10*3/uL PT 19.6 H (9.9-13.0) SEC INR 1.7 H (0.9-1.1) APTT 40.1 H (24.1-38.0) SEC VBG HCO3 (22-26) mmol/L Carbon Dioxide 30 H (22-29) mmol/L Anion Gap 11 L (12-20) Calcium 8.3 L (8.4-10.2) mg/dL Total Protein 5.5 L (6.5-8.0) g/dL Albumin 2.5 L (3.5-5.0) g/dL Urine Protein (NEG-TRACE) MG/DL Urine Blood (NEG) Urine Nitrite (NEG) Ur Leukocyte Esterase (NEG) 10/07/21 10/07/21 10/07/21 Range/Units 10:51 11:23 11:23 RBC (4.60-5.80) X10*6/uL Hgb (14.0-18.0) g/dl Hct (42.0-52.0) % MCHC (31.0-36.0) g/dl RDW (11.0-16.0) % Immature Gran % (Auto) (0.0-0.4) % Lymph % (Auto) (20-40) % Eos % (Auto) (0-4) % Lymph # (Auto) (1.2-4.9) X10*3/uL Abs Immat Gran (auto) (0.00-0.03) X10*3/uL PT (9.9-13.0) SEC INR (0.9-1.1) APTT (24.1-38.0) SEC VBG HCO3 32 H (22-26) mmol/L Carbon Dioxide (22-29) mmol/L Anion Gap (12-20) Calcium (8.4-10.2) mg/dL Total Protein (6.5-8.0) g/dL Albumin (3.5-5.0) g/dL Urine Protein 2+ H 2+ H (NEG-TRACE) MG/DL Urine Blood 3+ H 3+ H (NEG) Urine Nitrite POS H (NEG) Ur Leukocyte Esterase 2+ H 1+ H (NEG) Short CBC 10/07/21 Range/Units 10:46 WBC 6.7 (4.8-10.8) X10*3/uL Hgb 10.5 L (14.0-18.0) g/dl Hct 35.2 L (42.0-52.0) % Plt Count 392 (160-400) X10*3/uL BMP 10/07/21 10:46 Sodium 141 Potassium 4.6 Chloride 105 Carbon Dioxide 30 H BUN 12 Creatinine 0.72 Calcium 8.3 L Liver Function 10/07/21 Range/Units 10:46 Total Bilirubin 0.9 (0.0-1.0) mg/dL Direct Bilirubin 0.5 (0.0-0.5) mg/dL AST 20 (5-37) U/L ALT 24 (0-40) U/L Alkaline Phosphatase 97 (39-117) U/L Albumin 2.5 L (3.5-5.0) g/dL Urine 10/07/21 10/07/21 Range/Units 11:23 11:23 Urine Color REDDISH-BROWN DK YELLOW Urine Appearance CL[place]DY [place]Y Urine pH 6.5 6.5 (5.0-8.0) Ur Specific [place] 1.025 1.020 (1.005-1.025) Urine Protein 2+ H 2+ H (NEG-TRACE) MG/DL Urine Glucose (UA) NEG NEG (NEG) MG/DL All other labs normal. Imaging Abdomen CT scan report/results: report reviewed and image reviewed CT scan - pelvis: report reviewed and image reviewed Assessment and Plan (1) Hematoma of rectus sheath: Qualifiers: Encounter type: initial encounter Qualified Code(s): S30.1XXA - Contusion of abdominal wall, initial encounter Status: Acute He has a large intrarectus hematoma as well as a pelvic hematoma. These do appear old on CT scan. He is on Eliquis and may have freeman previous falls as suggested by multiple rib fractures of varying ages. His Hg is adequate. I would recommend holding his Eliquis until we can confirm that his Hg is stable. He has a very benign abdominal exam. His gallbladder appears distended on CT but he does not have any tenderness. He has other multiple issues ongoing. His Clarke may be in the urethra and should be consulted. He may have a pneumonia as well. His nephrostomy seems to be functioning. He seems to be in a very debilitated and deconditioned state. His laparotomy is incision is wellhealed. Overall, there does not appear to be any acute surgical issues. He can be started on diet. The rest of his care will be as per the medical service. Procedures Date of Service Date of Service: 10/07/21
[2021-10-07 12:06] LABS: Amorphous Sediment Urine 2+ /LPF; RBC Urine TNTC /HPF (0)
[2021-10-07 12:10] LABS: RBC Urine TNTC /HPF (0)
[2021-10-07 12:12] LABS: Bacteria Urine TRACE /LPF; Mucus Urine TRACE /LPF
[2021-10-07 12:12] LABS: Digoxin 0.9 ng/mL (0.8-2.0)
--- NOTE | 2021-10-07 13:44 | P.HPHOSP_ITS ---
History of Present Illness Date of Service: 10/07/21 Chief Complaint: Altered mental status An 86 years old male with PMH of aortic stenosis, HLD, bladder CA, bowel resection, nephrostomy tube placement among others who presents to the hospital from rehab facility for altered mentation. The patient reports that he went to sleep last night and around 01:30 the staff came in to change for him but he was difficult to awake. They tried in the morning and they were really concerned about his safety so they decided to call EMS to bring him to the hospital. In the emergency he was noted to be alert, interactive and oriented to self and place. He reports some difficulty breathing but no coughing, fever or chills. He reports mild hematuria and denies any abdominal pain, nausea, vomiting or change in his bowel habit. Chest x-ray concerning for possible pneumonia. Admitted for further evaluation and treatment. 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 GERD (gastroesophageal reflux disease) Gout Gross hematuria History of ETOH abuse HTN (hypertension) Hx of bladder cancer Hx of gastrointestinal hemorrhage Hyperlipidemia Idiopathic peripheral neuropathy Intestinal obstruction Lumbar spinal stenosis Malignant neoplasm of dome of urinary bladder MRSA (methicillin resistant Staphylococcus aureus) CLAUDE (obstructive sleep apnea) Osteoporosis Poor urinary stream Primary osteoarthritis of right shoulder Rheumatoid arthritis Rotator cuff impingement syndrome Unsteady gait Pertinent family history: HTN in parent Surgical History History of back surgery History of left knee replacement History of total right knee replacement Hx of appendectomy Hx of colonoscopy Hx of tonsillectomy Status post reverse total arthroplasty of left shoulder Social History Household Members Other:: son Are you a primary client care coordinator to a significant other at home: No Do you presently have visiting nurse or other home services: No Alcohol intake: never Patient Tobacco Use Status: Former Tobacco user Quit Date: 1962 Tobacco use type: Cigarette Use of substances other than those prescribed or required for medical reasons: No Advance Directives: No Advance Directives Information Provided: No Meds Allergies Allergy/AdvReac Type Severity Reaction Status Date / Time No Known Allergies Allergy Verified 08/04/21 12:12 Active Medications: Current Medications Pharmacy Consult (Consult Rx Perform Med Rec) 1 each MISCELLANE ONCE PRN PRN Reason: Consult order Home Medications Medication Instructions Recorded Confirmed Last Taken Type [place] 3 1,000 mg PO DAILY 08/04/21 10/07/21 Unknown History gabapentin 400 mg tablet 800 mg PO BEDTIME 08/04/21 10/07/21 Unknown History oxycodone-acetaminophen 5 mg-325 1 tab PO Q8H PRN 08/04/21 10/07/21 Unknown History mg tablet (Percocet) pravastatin 20 mg tablet 20 mg PO BEDTIME 08/04/21 10/07/21 Unknown History sennosides 8.6 mg-docusate sodium 1 tab-cap PO BEDTIME PRN 08/04/21 10/07/21 U nknown History 50 mg tablet (Colace 2-In-1) apixaban 5 mg tablet 5 mg PO BID 10/07/21 10/07/21 Unknown History docusate sodium 100 mg capsule 100 mg PO BID 10/07/21 10/07/21 Unknown History finasteride 5 mg tablet 5 mg PO DAILY 10/07/21 10/07/21 Unknown History metoprolol succinate 50 mg 150 mg PO DAILY 10/07/21 10/07/21 Unknown History tablet,extended release 24 hr pantoprazole 40 mg tablet,delayed 40 mg PO DAILY 10/07/21 10/07/21 Unknown History release tamsulosin 0.4 mg capsule 0.4 mg PO DAILY 10/07/21 10/07/21 Unknown History Physical Exam Vital Signs and Narrative: Vital Signs: Last Vital Signs Temp 97.7 F 10/07/21 12:08 Pulse 86 10/07/21 12:08 Resp 18 10/07/21 12:08 BP 138/61 10/07/21 12:08 Pulse Ox 100 10/07/21 12:08 Oxygen Flow Rate 2 10/07/21 09:27 BMI result Body Mass Index 28.4 Const: Other: Constitutional : Alert, oriented to self and place, not in distress Neck : Normal inspection, Supple Cardiovascular : RRR, S1 S2, no lower extremity edema Respiratory : Fair bilateral air entry, right-sided basal crackles, wheezes or rhonchi Gastrointestinal: soft, lax, Normal bowel sounds, Non tender Skin : Warm, Dry, nephrostomy tube on the left side with small amount of bloody urine Neurological : Alert & oriented x2, No focal deficit Results Labs CBC and Chem 7: 10/07/21 10:46 10/07/21 10:46 Labs: Laboratory Results - last 24 hr 10/07/21 10/07/21 10/07/21 10:46 10:46 10:46 MCV 94.1 MCH 28.1 MCHC 29.8 L RDW 17.1 H Plt Count 392 MPV 10.2 Immature Gran % (Auto) 0.6 H Neut % (Auto) 65.7 Lymph % (Auto) 16.8 L [place] % (Auto) 10.7 Eos % (Auto) 5.5 H Baso % (Auto) 0.7 Lymph # (Auto) 1.1 L [place] # (Auto) 0.7 Eos # (Auto) 0.4 Baso # (Auto) 0.1 Abs Immat Gran (auto) 0.04 H Absolute Neuts (auto) 4.4 Absolute Nucleated RBC 0.000 Nucleated RBC % (auto) 0.0 PT 19.6 H INR 1.7 H APTT 40.1 H VBG pH VBG pCO2 VBG pO2 VBG HCO3 VBG O2 Saturation VBG Base Excess Anion Gap 11 L Estim Creat Clear Calc 84.6 Estimated GFR > 60 Random Glucose 101 Lactic Acid Calcium 8.3 L Magnesium 2.1 Total Bilirubin 0.9 Direct Bilirubin 0.5 AST 20 ALT 24 Alkaline Phosphatase 97 Troponin I High Sens Total Protein 5.5 L Albumin 2.5 L Lipase 30 Urine Color Urine Appearance Urine pH Ur Specific [place] Urine Protein Urine Glucose (UA) Urine Ketones Urine Blood Urine Nitrite Ur Leukocyte Esterase Urine RBC Urine WBC Ur Squamous Epith Cells Amorphous Sediment Urine Bacteria Urine Mucus Digoxin COVID-19 ([facility]) COVID-19 Clin Com 10/07/21 10/07/21 10/07/21 10:46 10:46 10:46 MCV MCH MCHC RDW Plt Count MPV Immature Gran % (Auto) Neut % (Auto) Lymph % (Auto) [place] % (Auto) Eos % (Auto) Baso % (Auto) Lymph # (Auto) [place] # (Auto) Eos # (Auto) Baso # (Auto) Abs Immat Gran (auto) Absolute Neuts (auto) Absolute Nucleated RBC Nucleated RBC % (auto) PT INR APTT VBG pH VBG pCO2 VBG pO2 VBG HCO3 VBG O2 Saturation VBG Base Excess Anion Gap Estim Creat Clear Calc Estimated GFR Random Glucose Lactic Acid 0.9 Calcium Magnesium Total Bilirubin Direct Bilirubin AST ALT Alkaline Phosphatase Troponin I High Sens 8.3 Total Protein Albumin Lipase Urine Color Urine Appearance Urine pH Ur Specific [place] Urine Protein Urine Glucose (UA) Urine Ketones Urine Blood Urine Nitrite Ur Leukocyte Esterase Urine RBC Urine WBC Ur Squamous Epith Cells Amorphous Sediment Urine Bacteria Urine Mucus Digoxin 0.9 COVID-19 ([facility]) COVID-Health As We Age 10/07/21 10/07/21 10/07/21 10:51 11:23 11:23 MCV MCH MCHC RDW Plt Count MPV Immature Gran % (Auto) Neut % (Auto) Lymph % (Auto) [place] % (Auto) Eos % (Auto) Baso % (Auto) Lymph # (Auto) [place] # (Auto) Eos # (Auto) Baso # (Auto) Abs Immat Gran (auto) Absolute Neuts (auto) Absolute Nucleated RBC Nucleated RBC % (auto) PT INR APTT VBG pH 7.38 VBG pCO2 53 VBG pO2 37 VBG HCO3 32 H VBG O2 Saturation 51.0 VBG Base Excess 6.3 Anion Gap Estim Creat Clear Calc Estimated GFR Random Glucose Lactic Acid Calcium Magnesium Total Bilirubin Direct Bilirubin AST ALT Alkaline Phosphatase Troponin I High Sens Total Protein Albumin Lipase Urine Color REDDISH-BROWN DK YELLOW Urine Appearance [place] Urine pH 6.5 6.5 Ur Specific [place] 1.025 1.020 Urine Protein 2+ H 2+ H Urine Glucose (UA) NEG NEG Urine Ketones NEG NEG Urine Blood 3+ H 3+ H Urine Nitrite POS H NEG Ur Leukocyte Esterase 2+ H 1+ H Urine RBC TNTC H TNTC H Urine WBC 5-9 H 1-4 Ur Squamous Epith Cells NONE NONE Amorphous Sediment 2+ Urine Bacteria TRACE NONE Urine Mucus TRACE Digoxin COVID-19 ([facility]) COVID-19 [employer] Com 10/07/21 11:31 MCV MCH MCHC RDW Plt Count MPV Immature Gran % (Auto) Neut % (Auto) Lymph % (Auto) [place] % (Auto) Eos % (Auto) Baso % (Auto) Lymph # (Auto) [place] # (Auto) Eos # (Auto) Baso # (Auto) Abs Immat Gran (auto) Absolute Neuts (auto) Absolute Nucleated RBC Nucleated RBC % (auto) PT INR APTT VBG pH VBG pCO2 VBG pO2 VBG HCO3 VBG O2 Saturation VBG Base Excess Anion Gap Estim Creat Clear Calc Estimated GFR Random Glucose Lactic Acid Calcium Magnesium Total Bilirubin Direct Bilirubin AST ALT Alkaline Phosphatase Troponin I High Sens Total Protein Albumin Lipase Urine Color Urine Appearance Urine pH Ur Specific [place] Urine Protein Urine Glucose (UA) Urine Ketones Urine Blood Urine Nitrite Ur Leukocyte Esterase Urine RBC Urine WBC Ur Squamous Epith Cells Amorphous Sediment Urine Bacteria Urine Mucus Digoxin COVID-19 ([facility]) Negative COVID-19 Clin Com See Note Imaging Radiologist's Impressions: Impressions Abdomen/Pelvis CT 10/07/21 10:18 IMPRESSION: Large left rectus muscle and pelvic hematomas. Clarke catheter seen in the pelvis, question position. The Clarke catheter may be positioned in an empty bladder with focal right lateral and inferior wall thickening. The prostate gland may been removed. Clinical correlation recommended. Left nephrostomy tube in satisfactory position. No hydronephrosis. Diverticulosis of the colon and fluid-filled loops of small and large bowel suggestive of an ileus. Distended gallbladder and question small gallstone.. Fleischner guidelines were followed. Chest CT 10/07/21 10:18 IMPRESSION: Limited exam due to motion artifact. Nonspecific groundglass attenuation infiltrates in the left upper lobe and superior segment of the left lower lobe. Bibasilar small infiltrates or atelectasis. Small right pleural effusion. No pneumothorax. Multiple right-sided rib fractures of varying ages. Most recent rib fractures are posterior seventh through 10th rib fractures. Extensive orthopedic hardware in the thoracic spine. Fleischner guidelines were followed. Head CT 10/07/21 10:18 IMPRESSION: No acute intracranial findings. Generalized atrophy and nonstress the periventricular white matter disease. Assessment and Plan (1) Pneumonia: Qualifiers: Laterality: bilateral Lung location: unspecified part of lung Pneumo angi type: due to unspecified organism Qualified Code(s): J18.9 - Pneumonia, unspecified organism Status: Acute (2) Hematoma of rectus sheath: Qualifiers: Encounter type: initial encounter Qualified Code(s): S30.1XXA - Contusion of abdominal wall, initial encounter Status: Acute (3) Acute metabolic encephalopathy: Status: Acute (4) Physical deconditioning: Status: Acute An 86 years old male with PMH of aortic stenosis, HLD, bladder CA, bowel resection, nephrostomy tube placement among others who presents to the hospital from rehab facility for altered mentation. 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 Crenshaw Monitor urine output, Discussed the need of nephrostomy tube with Urology Atrial fibrillation continue metoprolol continue Eliquis DVT PPX Eliquis Quality Stroke Does the patient have a stroke diagnosis?: No VTE Prior VTE?: No VTE Risk Level:: Medical - moderate - high VTE Device Contraindication: Treatment Not Indicated VTE Drug Contraindication: N/A - Med Ordered
[2021-10-07] MEDS: vancomycin HCL 1,000 MG in 0.9 % Sodium Chloride 250 ML 270 MG IV (14:04)
[2021-10-07 14:19] LABS: Adenovirus PCR Not Detected (Not Detect.); Bordetella parapertussis PCR Not Detected (Not Detect.); Bordetella pertussis PCR Not Detected (Not Detect.); Chlamydia pneumoniae PCR Not Detected (Not Detect.); Coronavirus 229E PCR Not Detected (Not Detect.); Coronavirus HKU1 PCR Not Detected (Not Detect.); Coronavirus NL63 PCR Not Detected (Not Detect.); Coronavirus OC43 PCR Not Detected (Not Detect.); Human metapneumovirus PCR Not Detected (Not Detect.); Influenza A PCR Not Detected (Not Detect.); Influenza B PCR Not Detected (Not Detect.); Mycoplasma pneumoniae PCR Not Detected (Not Detect.); Parainfluenza 1 PCR Not Detected (Not Detect.); Parainfluenza 2 PCR Not Detected (Not Detect.); Parainfluenza 3 PCR Not Detected (Not Detect.); Parainfluenza 4 PCR Not Detected (Not Detect.); RSV PCR Not Detected (Not Detect.); Rhino/Enterovirus PCR Not Detected (Not Detect.); SARS-CoV-2 PCR Not Detected (Not Detect.)
--- NOTE | 2021-10-07 14:31 | MHC.CM.ED ---
i spoke c pt's daughter who is at bedside. pt is from [facility] and she is not sure she wants him to return . she is considering AR's and/or other snf's for STR c the goal for him to return home. she tells me he was very active prior to these recent hospitalizations. she did not want to make any ref's at this time. i did let her know the CM team would be involved with the patient and support whatever decisions the patient and family make. cm to cont. to follow.
[2021-10-07] MEDS: Omeprazole 40 MG CAPSULE.DR PO (14:44)
[2021-10-07] MEDS: Tamsulosin HCL 0.4 MG CAPSULE PO (14:44)
[2021-10-07] MEDS: Ascorbic Acid 500 MG TABLET 1000 MG PO (14:44)
[2021-10-07] MEDS: Apixaban 5 MG TABLET PO ×2 (14:44→21:29)
[2021-10-07] MEDS: Finasteride 5 MG TABLET PO (14:44)
[2021-10-07] MEDS: Metoprolol Succinate ER 50 MG TAB.ER.24H 150 MG PO (14:44)
--- NOTE | 2021-10-07 15:34 | PC.NURSE ---
report given to overflow rn
--- NOTE | 2021-10-07 16:08 | PC.NURSE ---
Received pt from main ED. Pt AOx3-4 with intermittent forgetfulness. Pt coming from local longterm facility s/p fall 1 month ago resulting in several rib fx and hematoma to the ileus. Pt brought to ER due to increased symptoms of altered mental status and lethargy. Pt recently had nephrostomy place on L side and willard placed. Urine from willard placed showed s/sx of UTI and pt also had s/sx of PNA. Pt now being treated with IV ABT. Both willard and nephrostomy tube draining with concentrated appearing fluid. MD Crenshaw at bedside for consult. Pt offers no complaints at this time.
[2021-10-07] MEDS: cefTRIAXone sodium 1 GM in 0.9 % Sodium Chloride 50 ML IV (16:54)
--- NOTE | 2021-10-07 17:24 | P.CNUR_ITS ---
History of Present Illness Consult details Consult date: 10/07/21 Narrative: Tirso is an 86-year-old male Known to Urology Prior prostate procedure Clarke catheter is in good place and draining Had right PCN tube is draining from right kidney Right PCN tube is removed at bedside Would expect continued good urine flow from bladder and minimal changes to Laboratories Review of Systems Constitutional: Constitutional: Reports as per HPI and Reports no additional constitutional complaints Cardiovascular: Cardiovascular: Reports as per HPI and Reports no additional cardiovascular complaints Respiratory: Respiratory: Reports as per HPI and Reports no additional respiratory complaints Gastrointestinal: Gastrointestinal: Reports as per HPI and Reports no additional gastrointestinal complaints Genitourinary: Genitourinary: Reports as per HPI Musculoskeletal: Musculoskeletal: Reports no additional musculoskeletal complaints and Reports as per HPI Neurologic: Reports system reviewed and no additional complaints, except as documented and Reports as per HPI PMF Past Medical History 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 GERD (gastroesophageal reflux disease) Gout Gross hematuria History of ETOH abuse HTN (hypertension) Hx of bladder cancer Hx of gastrointestinal hemorrhage Hyperlipidemia Idiopathic peripheral neuropathy Intestinal obstruction Lumbar spinal stenosis Malignant neoplasm of dome of urinary bladder MRSA (methicillin resistant Staphylococcus aureus) CLAUDE (obstructive sleep apnea) Osteoporosis Poor urinary stream Primary osteoarthritis of right shoulder Rheumatoid arthritis Rotator cuff impingement syndrome Unsteady gait Surgical History Surgical History History of back surgery History of left knee replacement History of total right knee replacement Hx of appendectomy Hx of colonoscopy Hx of tonsillectomy Status post reverse total arthroplasty of left shoulder Social History Social History Household Members Other:: son Are you a primary inspector health care facilities to a significant other at home: No Do you presently have visiting nurse or other home services: No Alcohol intake: never Patient Tobacco Use Status: Former Tobacco user Quit Date: 1962 Tobacco use type: Cigarette Use of substances other than those prescribed or required for medical reasons: No Advance Directives: No Advance Directives Information Provided: No Meds Allergies Allergy/AdvReac Type Severity Reaction Status Date / Time No Known Allergies Allergy Verified 08/04/21 12:12 Active Medications: Current Medications Acetaminophen (Acetaminophen 325 Mg Tablet) 650 mg PO Q6H PRN PRN Reason: Pain, Mild (Pain Scale 1-3) Apixaban (Apixaban 5 Mg Tablet) 5 mg PO BID [facility] Last Admin: 10/07/21 14:44 Dose: 5 mg Documented by: Ascorbic Acid (Ascorbic Acid 500 Mg Tablet) 1,000 mg PO DAILY [facility] Last Admin: 10/07/21 14:44 Dose: 1,000 mg Documented by: Docusate Sodium (Docusate Sodium 100 Mg Capsule) 100 mg PO BID [facility] Last Admin: 10/07/21 14:45 Dose: Not Given Documented by: Finasteride (Finasteride 5 Mg Tablet) 5 mg PO DAILY [facility] Last Admin: 10/07/21 14:44 Dose: 5 mg Documented by: Gabapentin (Gabapentin 100 Mg Capsule) 200 mg PO BEDTIME [facility] Ceftriaxone Sodium 1 gm/ (Sodium Chloride) 50 mls @ 100 mls/hr IV Q24H [facility] Last Admin: 10/07/21 16:54 Dose: 100 mls/hr Documented by: Metoprolol Succinate (Metoprolol Succinate Er 50 Mg Tab.Er.24h) 150 mg PO DAILY [facility]; Protocol Last Admin: 10/07/21 14:44 Dose: 150 mg Documented by: Omeprazole (Omeprazole 40 Mg Capsule.Dr) 40 mg PO DAILY@0630 [facility] Last Admin: 10/07/21 14:44 Dose: 40 mg Documented by: Ondansetron HCl (Ondansetron Hcl 4 Mg/2 Ml Vial) 4 mg IVPUSH Q8H PRN PRN Reason: Nausea and Vomiting Pharmacy Consult (Consult Rx Perform Med Rec) 1 each MISCELLANE ONCE PRN PRN Reason: Consult order Pravastatin Sodium (Pravastatin Sodium 20 Mg Tablet) 20 mg PO BEDTIME [facility] Senna/Docusate Sodium (Sennosides/Docusate Sodium Tablet) 1 tab PO BEDTIME PRN PRN Reason: Constipation Sodium Chloride (0.9 % Sodium Chloride Flush 3 Ml Syringe) 3 ml IVFLUSH QSHIFT [facility] Last Admin: 10/07/21 16:19 Dose: Not Given Documented by: Tamsulosin HCl (Tamsulosin Hcl 0.4 Mg Capsule) 0.4 mg PO DAILY [facility] Last Admin: 10/07/21 14:44 Dose: 0.4 mg Documented by: Home Medications Medication Instructions Recorded Confirmed Last Taken Type [place] 3 1,000 mg PO DAILY 08/04/21 10/07/21 Unknown History gabapentin 400 mg tablet 800 mg PO BEDTIME 08/04/21 10/07/21 Unknown History oxycodone-acetaminophen 5 mg-325 1 tab PO Q8H PRN 08/04/21 10/07/21 Unknown History mg tablet (Percocet) pravastatin 20 mg tablet 20 mg PO BEDTIME 08/04/21 10/07/21 Unknown History sennosides 8.6 mg-docusate sodium 1 tab-cap PO BEDTIME PRN 08/04/21 10/07/21 Unknown History 50 mg tablet (Colace 2-In-1) apixaban 5 mg tablet 5 mg PO BID 10/07/21 10/07/21 Unknown History docusate sodium 100 mg capsule 100 mg PO BID 10/07/21 10/07/21 Unknown History finasteride 5 mg tablet 5 mg PO DAILY 10/07/21 10/07/21 Unknown History metoprolol succinate 50 mg 150 mg PO DAILY 10/07/21 10/07/21 Unknown History tablet,extended release 24 hr pantoprazole 40 mg tablet,delayed 40 mg PO DAILY 10/07/21 10/07/21 Unknown History release tamsulosin 0.4 mg capsule 0.4 mg PO DAILY 10/07/21 10/07/21 Unknown History Physical Exam Vital Signs: Vital Signs: Last Vital Signs Temp 97.7 F 10/07/21 16:00 Pulse 89 10/07/21 16:00 Resp 18 10/07/21 16:00 BP 121/57 L 10/07/21 16:00 Pulse Ox 100 10/07/21 16:00 Oxygen Flow Rate 2 10/07/21 09:27 BMI result Body Mass Index 28.4 Const: General: cooperative, healthy appearing, comfortable and no acute distress Orientation/consciousness: patient oriented x3 HENMT: Face and sinus: Yes normal facial exam Mouth: moist mucous membranes Neck: Neck: Yes normal visual inspection, Yes full ROM and Yes trachea midline Chest: Chest palpation & inspection: normal inspection of the chest Resp: Effort & Inspection: normal respiratory effort, able to speak in complete sentences and no respiratory distress GI: Inspection: Yes normal to inspection Back/Spine/Pelvis: Cervical Spine: normal cervical lordosis Thoracic/Lumbar Spine: thoracic and lumbar spine normal to inspection Skin: General skin exam: no rashes or lesions noted Neuro: General: patient oriented x3, tone normal and moves all extremities Extrem: General: Yes normal to inspection and Yes capillary refill normal Results Labs Result diagrams: 10/07/21 10:46 10/07/21 10:46 Labs: Abnormal lab results 10/07/21 10/07/21 10/07/21 Range/Units 10:46 10:46 10:46 RBC 3.74 L (4.60-5.80) X10*6/uL Hgb 10.5 L (14.0-18.0) g/dl Hct 35.2 L (42.0-52.0) % MCHC 29.8 L (31.0-36.0) g/dl RDW 17.1 H (11.0-16.0) % Immature Gran % (Auto) 0.6 H (0.0-0.4) % Lymph % (Auto) 16.8 L (20-40) % Eos % (Auto) 5.5 H (0-4) % Lymph # (Auto) 1.1 L (1.2-4.9) X10*3/uL Abs Immat Gran (auto) 0.04 H (0.00-0.03) X10*3/uL PT 19.6 H (9.9-13.0) SEC INR 1.7 H (0.9-1.1) APTT 40.1 H (24.1-38.0) SEC VBG HCO3 (22-26) mmol/L Carbon Dioxide 30 H (22-29) mmol/L Anion Gap 11 L (12-20) Calcium 8.3 L (8.4-10.2) mg/dL Total Protein 5.5 L (6.5-8.0) g/dL Albumin 2.5 L (3.5-5.0) g/dL Urine Protein (NEG-TRACE) MG/DL Urine Blood (NEG) Urine Nitrite (NEG) Ur Leukocyte Esterase (NEG) Urine RBC (0) /HPF Urine WBC (0-4) /HPF 10/07/21 10/07/21 10/07/21 Range/Units 10:51 11:23 11:23 RBC (4.60-5.80) X10*6/uL Hgb (14.0-18.0) g/dl Hct (42.0-52.0) % MCHC (31.0-36.0) g/dl RDW (11.0-16.0) % Immature Gran % (Auto) (0.0-0.4) % Lymph % (Auto) (20-40) % Eos % (Auto) (0-4) % Lymph # (Auto) (1.2-4.9) X10*3/uL Abs Immat Gran (auto) (0.00-0.03) X10*3/uL PT (9.9-13.0) SEC INR (0.9-1.1) APTT (24.1-38.0) SEC VBG HCO3 32 H (22-26) mmol/L Carbon Dioxide (22-29) mmol/L Anion Gap (12-20) Calcium (8.4-10.2) mg/dL Total Protein (6.5-8.0) g/dL Albumin (3.5-5.0) g/dL Urine Protein 2+ H 2+ H (NEG-TRACE) MG/DL Urine Blood 3+ H 3+ H (NEG) Urine Nitrite POS H (NEG) Ur Leukocyte Esterase 2+ H 1+ H (NEG) Urine RBC TNTC H TNTC H (0) /HPF Urine WBC 5-9 H (0-4) /HPF Short CBC 10/07/21 Range/Units 10:46 WBC 6.7 (4.8-10.8) X10*3/uL Hgb 10.5 L (14.0-18.0) g/dl Hct 35.2 L (42.0-52.0) % Plt Count 392 (160-400) X10*3/uL BMP 10/07/21 10:46 Sodium 141 Potassium 4.6 Chloride 105 Carbon Dioxide 30 H BUN 12 Creatinine 0.72 Calcium 8.3 L Liver Function 10/07/21 Range/Units 10:46 Total Bilirubin 0.9 (0.0-1.0) mg/dL Direct Bilirubin 0.5 (0.0-0.5) mg/dL AST 20 (5-37) U/L ALT 24 (0-40) U/L Alkaline Phosphatase 97 (39-117) U/L Albumin 2.5 L (3.5-5.0) g/dL Urine 10/07/21 10/07/21 Range/Units 11:23 11:23 Urine Color REDD[place]BROWN DK YELLOW Urine Appearance [place] Urine pH 6.5 6.5 (5.0-8.0) Ur Specific [place] 1.025 1.020 (1.005-1.025) Urine Protein 2+ H 2+ H (NEG-TRACE) MG/DL Urine Glucose (UA) NEG NEG (NEG) MG/DL All other labs normal. Assessment and Plan (1) Recurrent UTI (urinary tract infection): Status: Acute (2) Bladder cancer: Status: Acute PCN tube removed from right kidney Dressing applied Procedures Date of Service Date of Service: 10/07/21
--- NOTE | 2021-10-07 18:21 | PC.NURSE ---
MD Crenshaw at bedside and L nephrostomy removed at this time. 4x4 applied with tape by . Pt tolerated well. Pt offers no complaints.
[2021-10-07] MEDS: Acetaminophen 325 MG TABLET 650 MG PO (18:43)
--- NOTE | 2021-10-07 19:11 | PC.NURSE ---
Pt's son Bakari (health care proxy): [phone]
[2021-10-07] MEDS: Gabapentin 100 MG CAPSULE 200 MG PO (21:25)
[2021-10-07] MEDS: Docusate Sodium 100 MG CAPSULE PO (21:26)
[2021-10-07] MEDS: Pravastatin Sodium 20 MG TABLET PO (22:17)
[2021-10-08] VITALS (7 sets, daily range): BP systolic 91–120; BP diastolic 42–60; PULSE 71–89; RESP 14–22; TEMP 36–36.6; O2SAT 95–100
[2021-10-08] MEDS: Omeprazole 40 MG CAPSULE.DR PO (06:05)
[2021-10-08 08:35] LABS: Hematocrit 34.6 % (42.0-52.0); Hemoglobin 10.1 g/dl (14.0-18.0); Mean Corpuscular HGB Conc 29.2 g/dl (31.0-36.0); Mean Corpuscular Hemoglobin 27.7 pg (27.0-33.0); Mean Corpuscular Volume 95.1 fL (80.0-98.0); Mean Platelet Volume 10.5 fL (9.4-12.4); Platelet Count 386 X10*3/uL (160-400); Red Blood Count 3.64 X10*6/uL (4.60-5.80); White Blood Count 7.7 X10*3/uL (4.8-10.8)
[2021-10-08 08:50] LABS: Anion Gap 10 (12-20); Blood Urea Nitrogen 11 mg/dL (9-16); Calcium 8.5 mg/dL (8.4-10.2); Carbon Dioxide 30 mmol/L (22-29); Chloride 107 mmol/L (96-108); Creatinine Clr Calc Pharmacy 88.3; Estimated Glomerular Filt Rate > 60; Glucose Random 103 mg/dL (60-115); Potassium 4.6 mmol/L (3.3-5.1); Sodium 142 mmol/L (135-145)
[2021-10-08] MEDS: Metoprolol Succinate ER 50 MG TAB.ER.24H 150 MG PO (09:21)
[2021-10-08] MEDS: Apixaban 5 MG TABLET PO ×2 (09:21→20:14)
[2021-10-08] MEDS: Finasteride 5 MG TABLET PO (09:21)
[2021-10-08] MEDS: Acetaminophen 325 MG TABLET 650 MG PO ×2 (09:21→23:44)
[2021-10-08] MEDS: Docusate Sodium 100 MG CAPSULE PO ×2 (09:22→20:14)
[2021-10-08] MEDS: 0.9 % Sodium Chloride Flush 3 ML SYRINGE IVFLUSH ×3 (09:27→21:27)
[2021-10-08] MEDS: Ascorbic Acid 500 MG TABLET 1000 MG PO (10:42)
[2021-10-08] MEDS: Tamsulosin HCL 0.4 MG CAPSULE PO (10:43)
--- NOTE | 2021-10-08 11:44 | HO.PM.IMPN ---
Subjective Subjective Date of Service: 10/08/21 Interval History: the patient was seen and evaluated this morning Laying in bed, easy to wake up, feels little better today On oxygen supplement Denies any fever, chills or shortness of breath No reported other overnight events. Review of Systems No fever, chills but reports generalized weakness No chest pain, palpitation Mild shortness of breath but no coughing No abdominal pain, nausea or vomiting Hematuria No any rash or wounds Physical Exam Vital Signs: Vital Signs: Last Vital Signs Temp 96.8 F 10/08/21 06:11 Pulse 83 10/08/21 09:21 Resp 14 10/08/21 08:00 BP 94/54 L 10/08/21 09:21 Pulse Ox 99 10/08/21 08:00 Oxygen Flow Rate 2 10/07/21 09:27 BMI result Body Mass Index 28.4 Const: Other: Constitutional : Alert, oriented to self and place, not in distress Neck : Normal inspection, Supple Cardiovascular : RRR, S1 S2, no lower extremity edema Respiratory : Fair bilateral air entry, right-sided basal crackles, wheezes or rhonchi, on oxygen supplement Gastrointestinal: soft, lax, Normal bowel sounds, Non tender Skin : Warm, Dry, nephrostomy tube on the left side with small amount of bloody urine Neurological : Alert & oriented x2, No focal deficit Objective Data Active Medications Acetaminophen (Acetaminophen 325 Mg Tablet) 650 mg PO Q6H PRN PRN Reason: Pain, Mild (Pain Scale 1-3) Last Admin: 10/08/21 09:21 Dose: 650 mg Documented by: GELA Apixaban (Apixaban 5 Mg Tablet) 5 mg PO BID [facility] Last Admin: 10/08/21 09:21 Dose: 5 mg Documented by: GELA Ascorbic Acid (Ascorbic Acid 500 Mg Tablet) 1,000 mg PO DAILY [facility] Last Admin: 10/08/21 10:42 Dose: 1,000 mg Documented by: GELA Docusate Sodium (Docusate Sodium 100 Mg Capsule) 100 mg PO BID [facility] Last Admin: 10/08/21 09:22 Dose: 100 mg Documented by: GELA Finasteride (Finasteride 5 Mg Tablet) 5 mg PO DAILY [facility] Last Admin: 10/08/21 09:21 Dose: 5 mg Documented by: GELA Gabapentin (Gabapentin 100 Mg Capsule) 200 mg PO BEDTIME [facility] Last Admin: 10/07/21 21:25 Dose: 200 mg Documented by: SYDNEY Ceftriaxone Sodium 1 gm/ (Sodium Chloride) 50 mls @ 100 mls/hr IV Q24H [facility] Last Infusion: 10/07/21 17:24 Dose: 0 mls/hr Documented by: SUSI Metoprolol Succinate (Metoprolol Succinate Er 50 Mg Tab.Er.24h) 150 mg PO DAILY [facility]; Protocol Last Admin: 10/08/21 09:21 Dose: 150 mg Documented by: GELA Omeprazole (Omeprazole 40 Mg Capsule.Dr) 40 mg PO DAILY@0630 [facility] Last Admin: 10/08/21 06:05 Dose: 40 mg Documented by: SYDNEY Ondansetron HCl (Ondansetron Hcl 4 Mg/2 Ml Vial) 4 mg IVPUSH Q8H PRN PRN Reason: Nausea and Vomiting Pharmacy Consult (Consult Rx Perform Med Rec) 1 each MISCELLANE ONCE PRN PRN Reason: Consult order Pravastatin Sodium (Pravastatin Sodium 20 Mg Tablet) 20 mg PO BEDTIME [facility] Last Admin: 10/07/21 22:17 Dose: 20 mg Documented by: SYDNEY Senna/Docusate Sodium (Sennosides/Docusate Sodium Tablet) 1 tab PO BEDTIME PRN PRN Reason: Constipation Sodium Chloride (0.9 % Sodium Chloride Flush 3 Ml Syringe) 3 ml IVFLUSH QSHIFT [facility] Last Admin: 10/08/21 09:27 Dose: 3 ml Documented by: GELA Tamsulosin HCl (Tamsulosin Hcl 0.4 Mg Capsule) 0.4 mg PO DAILY [facility] Last Admin: 10/08/21 10:43 Dose: 0.4 mg Documented by: GELA Labs CBC & Chem 7: 10/08/21 07:47 10/08/21 07:47 Labs: Laboratory Results - last 24 hr 10/07/21 10/07/21 10/07/21 10:46 11:23 11:23 MCV MCH MCHC RDW Plt Count MPV Absolute Nucleated RBC Nucleated RBC % (auto) Anion Gap Estim Creat Clear Calc Estimated GFR Random Glucose Calcium Urine Color REDDISH-BROWN DK YELLOW Urine Appearance CLOUDY HAZY Urine pH 6.5 6.5 Ur Specific [place] 1.025 1.020 Urine Protein 2+ H 2+ H Urine Glucose (UA) NEG NEG Urine Ketones NEG NEG Urine Blood 3+ H 3+ H Urine Nitrite POS H NEG Ur Leukocyte Esterase 2+ H 1+ H Urine RBC TNTC H TNTC H Urine WBC 5-9 H 1-4 Ur Squamous Epith Cells NONE NONE Amorphous Sediment 2+ Urine Bacteria TRACE NONE Urine Mucus TRACE Digoxin 0.9 Respiratory Panel Corona Adenovirus (Rapid PCR) B.pert (TEM-PCR) B.parapertussis DNA PCR C. pneumoniae DNA (PCR) Coronavirus OC43 (PCR) Coronavirus HKU1 (PCR) Coronavirus 229E (PCR) COVID-19 (AUGUSTUS) COVID-19 Clin Com Coronavirus NL63 (PCR) Human Metapneumovir PCR Influenza A (RT-PCR) Influenza B (RT-PCR) M. pneumoniae (PCR) Parainfluenza 1 (PCR) Parainfluenza 2 (PCR) Parainfluenza 3 (PCR) Parainfluenza 4 (PCR) RSV (PCR) Entero/Rhino (PCR) SARS-CoV-2 RNA (RT-PCR) Blood Type Antibody Screen 10/07/21 10/07/21 10/07/21 11:31 13:01 14:11 MCV MCH MCHC RDW Plt Count MPV Absolute Nucleated RBC Nucleated RBC % (auto) Anion Gap Estim Creat Clear Calc Estimated GFR Random Glucose Calcium Urine Color Urine Appearance Urine pH Ur Specific [place] Urine Protein Urine Glucose (UA) Urine Ketones Urine Blood Urine Nitrite Ur Leukocyte Esterase Urine RBC Urine WBC Ur Squamous Epith Cells Amorphous Sediment Urine Bacteria Urine Mucus Digoxin Respiratory Panel Corona See Note Adenovirus (Rapid PCR) Not Detected B.pert (TEM-PCR) Not Detected B.parapertussis DNA PCR Not Detected C. pneumoniae DNA (PCR) Not Detected Coronavirus OC43 (PCR) Not Detected Coronavirus HKU1 (PCR) Not Detected Coronavirus 229E (PCR) Not Detected COVID-19 (AUGUSTUS) Negative COVID-19 Clin Com See Note Coronavirus NL63 (PCR) Not Detected Human Metapneumovir PCR Not Detected Influenza A (RT-PCR) Not Detected Influenza B (RT-PCR) Not Detected M. pneumoniae (PCR) Not Detected Parainfluenza 1 (PCR) Not Detected Parainfluenza 2 (PCR) Not Detected Parainfluenza 3 (PCR) Not Detected Parainfluenza 4 (PCR) Not Detected RSV (PCR) Not Detected Entero/Rhino (PCR) Not Detected SARS-CoV-2 RNA (RT-PCR) Not Detected Blood Type O Positive Antibody Screen NEGATIVE 10/08/21 10/08/21 07:47 07:47 MCV 95.1 MCH 27.7 MCHC 29.2 L RDW 17.0 H Plt Count 386 MPV 10.5 Absolute Nucleated RBC 0.000 Nucleated RBC % (auto) 0.0 Anion Gap 10 L Estim Creat Clear Calc 88.3 Estimated GFR > 60 Random Glucose 103 Calcium 8.5 Urine Color Urine Appearance Urine pH Ur Specific [place] Urine Protein Urine Glucose (UA) Urine Ketones Urine Blood Urine Nitrite Ur Leukocyte Esterase Urine RBC Urine WBC Ur Squamous Epith Cells Amorphous Sediment Urine Bacteria Urine Mucus Digoxin Respiratory Panel Corona Adenovirus (Rapid PCR) B.pert (TEM-PCR) B.parapertussis DNA PCR C. pneumoniae DNA (PCR) Coronavirus OC43 (PCR) Coronavirus HKU1 (PCR) Coronavirus 229E (PCR) COVID-19 (AUGUSTUS) COVID-19 Clin Com Coronavirus NL63 (PCR) Human Metapneumovir PCR Influenza A (RT-PCR) Influenza B (RT-PCR) M. pneumoniae (PCR) Parainfluenza 1 (PCR) Parainfluenza 2 (PCR) Parainfluenza 3 (PCR) Parainfluenza 4 (PCR) RSV (PCR) Entero/Rhino (PCR) SARS-CoV-2 RNA (RT-PCR) Blood Type Antibody Screen Microbiology Microbiology Results: Microbiology 10/07/21 Unknown Urine Culture - Preliminary Urine Catheterized - Clarke Catheter Culture too young to evaluate. Assessment and Plan (1) Physical deconditioning: Status: Acute (2) Acute metabolic encephalopathy: Status: Acute (3) Recurrent UTI (urinary tract infection): Status: Acute (4) Pneumonia: Status: Acute Assessment and Plan: An 86 years old male with PMH of aortic stenosis, HLD, bladder CA, bowel resection, nephrostomy tube placement among others who presents to the hospital from rehab facility for altered mentation. 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 Crenshaw Monitor urine output, Discussed the need of nephrostomy tube with Urology Atrial fibrillation continue metoprolol continue Eliquis DVT PPX Eliquis Quality Stroke Does the patient have a stroke diagnosis?: No VTE Prior VTE?: No VTE Risk Level:: Medical - moderate - high VTE Device Contraindication: Treatment Not Indicated VTE Drug Contraindication: N/A - Med Ordered
[2021-10-08] MEDS: Lidocaine 4 % Patch ADH..PATCH 2 PATCH TRANSDERMA (16:11)
[2021-10-08] MEDS: Ibuprofen 400 MG TABLET PO (16:12)
[2021-10-08] MEDS: cefTRIAXone sodium 1 GM in 0.9 % Sodium Chloride 50 ML IV (17:43)
[2021-10-08] MEDS: Gabapentin 100 MG CAPSULE 200 MG PO (20:14)
[2021-10-08] MEDS: Pravastatin Sodium 20 MG TABLET PO (20:23)
[2021-10-09 01:59] VITALS: BP 86/51; PULSE 66; RESP 16; TEMP 36.5
[2021-10-09] MEDS: Lactated Ringers 500 ML IVCONT ×2 (02:34→03:50)
[2021-10-09 04:27] VITALS: BP 113/55; PULSE 78; RESP 14; TEMP 36.4; O2SAT 99
[2021-10-09] MEDS: Omeprazole 40 MG CAPSULE.DR PO (06:59)
[2021-10-09 07:11] LABS: Hematocrit 33.9 % (42.0-52.0); Hemoglobin 9.9 g/dl (14.0-18.0); Mean Corpuscular HGB Conc 29.2 g/dl (31.0-36.0); Mean Corpuscular Hemoglobin 27.6 pg (27.0-33.0); Mean Corpuscular Volume 94.4 fL (80.0-98.0); Mean Platelet Volume 10.6 fL (9.4-12.4); Platelet Count 366 X10*3/uL (160-400); Red Blood Count 3.59 X10*6/uL (4.60-5.80); Red Cell Distribution Width 16.7 % (11.0-16.0); White Blood Count 6.8 X10*3/uL (4.8-10.8)
[2021-10-09 07:29] LABS: Anion Gap 8 (12-20); Blood Urea Nitrogen 12 mg/dL (9-16); Calcium 8.4 mg/dL (8.4-10.2); Carbon Dioxide 31 mmol/L (22-29); Chloride 105 mmol/L (96-108); Creatinine Clr Calc Pharmacy 103.3; Estimated Glomerular Filt Rate > 60; Glucose Random 82 mg/dL (60-115); Potassium 4.6 mmol/L (3.3-5.1); Sodium 139 mmol/L (135-145)
[2021-10-09 08:00] VITALS: BP 112/58; PULSE 74; RESP 18; O2SAT 98
[2021-10-09 08:08] VITALS: BP 112/58; PULSE 74
[2021-10-09] MEDS: Metoprolol Succinate ER 50 MG TAB.ER.24H 150 MG PO (08:08)
[2021-10-09] MEDS: Lidocaine 4 % Patch ADH..PATCH 2 PATCH TRANSDERMA (08:08)
[2021-10-09] MEDS: Ascorbic Acid 500 MG TABLET 1000 MG PO (08:08)
[2021-10-09] MEDS: Finasteride 5 MG TABLET PO (08:08)
[2021-10-09] MEDS: 0.9 % Sodium Chloride Flush 3 ML SYRINGE IVFLUSH ×2 (08:09→18:02)
[2021-10-09] MEDS: Apixaban 5 MG TABLET PO ×2 (08:09→20:54)
[2021-10-09] MEDS: Tamsulosin HCL 0.4 MG CAPSULE PO (08:09)
--- NOTE | 2021-10-09 11:29 | MHC.CM.PN ---
Addendum entered by Rita Duenas 10/09/21 13:31: CM MET WITH PTS DAUGHTER, XAVIER, WHO REPORTS PT WAS VERY ACTIVE PRIOR TO RECENT HOSPITALIZATION. SHE REPORTS HE HAS BEEN AT [facility] BUT HAS NOT GOTTEN MUCH PT. SHE REQUESTS REFERRALS TO [facility]. REFERRALS PLACED Original Note: CM RECEIVED A CALL INDICATING PTS DAUGHTER WAS REQUESTING A LIST OF STR'S IN THE AREA. CM BROUGHT LIST TO UNIT HOWEVER PTS DAUGHTER HAD LEFT. CM MET WITH PT AND EXPLAINED LIST HOWEVER PT REPORTED HE WAS AT [facility] PRIOR TO ADMISSION AND WOULD LIKE TO RETURN THERE. HE IS AGREEABLE TO CM CALLING HIS DAUGHTER HOWEVER HE REPORTS AT THE CURRENT TIME SHE IS DRIVING HER BROTHER TO THE AIRPORT. CM INFORMED HIM A CALL WOULD BE MADE TO HIS DAUGHTER LATER IN THE DAY.
--- NOTE | 2021-10-09 12:25 | P.PNIM_ITS ---
Subjective Subjective Date of Service: 10/09/21 Interval History: the patient was seen and evaluated this morning Laying in bed, easy to wake up, feels better today On oxygen supplement Denies any fever, chills or shortness of breath No reported other overnight events. Review of Systems No fever, chills but reports generalized weakness No chest pain, palpitation Mild shortness of breath but no coughing No abdominal pain, nausea or vomiting No Hematuria No any rash or wounds Physical Exam Vital Signs: Vital Signs: Last Vital Signs Temp 97.6 F 10/09/21 04:27 Pulse 74 10/09/21 08:08 Resp 18 10/09/21 08:00 BP 112/58 L 10/09/21 08:08 Pulse Ox 98 10/09/21 08:00 Oxygen Flow Rate 2 10/07/21 09:27 BMI result Body Mass Index 28.4 Const: Other: Constitutional : Alert, oriented to self and place, not in distress Neck : Normal inspection, Supple Cardiovascular : RRR, S1 S2, no lower extremity edema Respiratory : Fair bilateral air entry, right-sided basal crackles, wheezes or rhonchi, on oxygen supplement Gastrointestinal: soft, lax, Normal bowel sounds, Non tender Skin : Warm, Dry, nephrostomy tube on the left side removed Neurological : Alert & oriented x2, No focal deficit Objective Data Active Medications Acetaminophen (Acetaminophen 325 Mg Tablet) 650 mg PO Q6H PRN PRN Reason: Pain, Mild (Pain Scale 1-3) Last Admin: 10/08/21 23:44 Dose: 650 mg Documented by: RUBIA Apixaban (Apixaban 5 Mg Tablet) 5 mg PO BID [facility] Last Admin: 10/09/21 08:09 Dose: 5 mg Documented by: GELA Ascorbic Acid (Ascorbic Acid 500 Mg Tablet) 1,000 mg PO DAILY [facility] Last Admin: 10/09/21 08:08 Dose: 1,000 mg Documented by: GELA Docusate Sodium (Docusate Sodium 100 Mg Capsule) 100 mg PO BID [facility] Last Admin: 10/09/21 08:31 Dose: Not Given Documented by: GELA Non-Admin Reason: Loose stools Finasteride (Finasteride 5 Mg Tablet) 5 mg PO DAILY [facility] Last Admin: 10/09/21 08:08 Dose: 5 mg Documented by: GELA Gabapentin (Gabapentin 100 Mg Capsule) 200 mg PO BEDTIME [facility] Last Admin: 10/08/21 20:14 Dose: 200 mg Documented by: RUBIA Ceftriaxone Sodium 1 gm/ (Sodium Chloride) 50 mls @ 100 mls/hr IV Q24H [facility] Last Infusion: 10/08/21 18:26 Dose: 0 mls/hr Documented by: GELA Lidocaine (Lidocaine 4 % Patch Adh..Patch) 2 patch TRANSDERMA DAILY [facility]; Pro tocol Last Admin: 10/09/21 08:08 Dose: 2 patch Documented by: GELA Metoprolol Succinate (Metoprolol Succinate Er 50 Mg Tab.Er.24h) 150 mg PO DAILY [facility]; Protocol Last Admin: 10/09/21 08:08 Dose: 150 mg Documented by: GELA Omeprazole (Omeprazole 40 Mg Capsule.Dr) 40 mg PO DAILY@0630 [facility] Last Admin: 10/09/21 06:59 Dose: 40 mg Documented by: RUBIA Ondansetron HCl (Ondansetron Hcl 4 Mg/2 Ml Vial) 4 mg IVPUSH Q8H PRN PRN Reason: Nausea and Vomiting Pharmacy Consult (Consult Rx Perform Med Rec) 1 each MISCELLANE ONCE PRN PRN Reason: Consult order Pravastatin Sodium (Pravastatin Sodium 20 Mg Tablet) 20 mg PO BEDTIME [facility] Last Admin: 10/08/21 20:23 Dose: 20 mg Documented by: RUBIA Senna/Docusate Sodium (Sennosides/Docusate Sodium Tablet) 1 tab PO BEDTIME PRN PRN Reason: Constipation Sodium Chloride (0.9 % Sodium Chloride Flush 3 Ml Syringe) 3 ml IVFLUSH QSHIFT [facility] Last Admin: 10/09/21 08:09 Dose: 3 ml Documented by: GELA Tamsulosin HCl (Tamsulosin Hcl 0.4 Mg Capsule) 0.4 mg PO DAILY [facility] Last Admin: 10/09/21 08:09 Dose: 0.4 mg Documented by: GELA Labs CBC & Chem 7: 10/09/21 06:55 10/09/21 06:55 Labs: Laboratory Results - last 24 hr 10/09/21 10/09/21 06:55 06:55 MCV 94.4 MCH 27.6 MCHC 29.2 L RDW 16.7 H Plt Count 366 MPV 10.6 Absolute Nucleated RBC 0.000 Nucleated RBC % (auto) 0.0 Anion Gap 8 L Estim Creat Clear Calc 103.3 Estimated GFR > 60 Random Glucose 82 Calcium 8.4 Microbiology Microbiology Results: Microbiology 10/07/21 Unknown Urine Culture - Preliminary Urine Catheterized - Clarke Catheter Culture in progress. 10/07/21 10:46 Blood Culture - Preliminary Blood - Venous No growth after 24 hours. 10/07/21 10:46 Blood Culture - Preliminary Blood - Venous No growth after 24 hours. Assessment and Plan (1) Physical deconditioning: Status: Acute (2) Acute metabolic encephalopathy: Status: Acute (3) Recurrent UTI (urinary tract infection): Status: Acute (4) Pneumonia: Status: Acute Assessment and Plan: An 86 years old male with PMH of aortic stenosis, HLD, bladder CA, bowel resection, nephrostomy tube placement among others who presents to the hospital from rehab facility for altered mentation. 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 Crenshaw Monitor urine output, nephrostomy tube removed by Urology Atrial fibrillation continue metoprolol continue Eliquis DVT PPX Eliquis Quality Stroke Does the patient have a stroke diagnosis?: No VTE Prior VTE?: No VTE Risk Level:: Medical - moderate - high VTE Device Contraindication: Treatment Not Indicated VTE Drug Contraindication: N/A - Med Ordered
--- NOTE | 2021-10-09 13:57 | MHC.CM.PN ---
Addendum entered by Rita Duenas 10/10/21 08:47: PTS IMM WAS DELIVERED TO BOTH HIM AT BEDSIDE AND HIS DAUGHTER VIA T/C. ORIGINAL WAS LEFT AT BEDSIDE AND A COPY WAS SENT TO [facility]. Addendum entered by Rita Duenas 10/09/21 14:34: CM RECEIVED A MESSAGE FROM [facility], PT IS A [facility] BED HOLD WITH THEM. THEY ARE ALSO FAXING PTS HCP TO CM OFFICE Original Note: SIMONIZER PT WAS AT [facility] HOWEVER, PTS DAUGHTER IS UNSURE IF SHE WOULD LIKE HIM TO RETURN. 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 SHE REQUESTED REFERRALS TO [facility]. REFERRALS PLACED. PT LIKELY TO DC SUNDAY AFTER CULTURES FINALIZED PRIMARY CONTACT IS PTS DAUGHTERXAVIER [phone]
[2021-10-09 15:53] VITALS: BP 112/58; PULSE 72; RESP 16; TEMP 36.7; O2SAT 96
--- NOTE | 2021-10-09 16:19 | PC.NURSE ---
Pt incontinent of stool. Assisted RN to clean pt and change bedding. Clarke drained of 850ml of dark brown urine. RN aware
[2021-10-09] MEDS: cefTRIAXone sodium 1 GM in 0.9 % Sodium Chloride 50 ML IV (18:02)
[2021-10-09] MEDS: Gabapentin 100 MG CAPSULE 200 MG PO (20:54)
[2021-10-09] MEDS: Docusate Sodium 100 MG CAPSULE PO (20:54)
[2021-10-09] MEDS: Pravastatin Sodium 20 MG TABLET PO (22:10)
[2021-10-10 06:11] VITALS: BP 118/60; PULSE 70; RESP 14; TEMP 36.6; O2SAT 96
[2021-10-10] MEDS: Omeprazole 40 MG CAPSULE.DR PO (06:26)
--- NOTE | 2021-10-10 08:44 | MHC.CM.PN ---
PT IN FROM [facility] WHERE HE IS A [facility] B[facility]. PT AND DAUGHTER ARE CONSIDERING OTHER SNF'S, PATIENT WILL HAVE PT/OT EVALS TODAY. CM HAS RECEIVED A COPY OF PTS HCP FROM [facility]. PTS SON, KAITLIN [phone], IS PRIMARY. ROSENDO IS SECONDARY. PT IS ALERT AND ORIENTED X 4. PER PATIENT AND DAUGHTER, THEY WOULD LIKE PT TO GO TO AN ACUTE REHAB HE WAS VERY INDEPENDENT AND ACTIVE TRENCH DIGGER, HOWEVER IF [facility] AND THE ACUTE REHABS DO NOT OFFER A BED, THEY WOULD LIKE PT TO RETURN TO [facility].
[2021-10-10 09:21] VITALS: BP 144/68; PULSE 77; RESP 20; TEMP 36.3; O2SAT 99
[2021-10-10] MEDS: Tamsulosin HCL 0.4 MG CAPSULE PO (09:33)
[2021-10-10] MEDS: Docusate Sodium 100 MG CAPSULE PO (09:33)
[2021-10-10] MEDS: Ascorbic Acid 500 MG TABLET 1000 MG PO (09:33)
[2021-10-10 09:34] VITALS: BP 144/68; PULSE 77
[2021-10-10] MEDS: Apixaban 5 MG TABLET PO (09:34)
[2021-10-10] MEDS: Finasteride 5 MG TABLET PO (09:34)
[2021-10-10] MEDS: Lidocaine 4 % Patch ADH..PATCH 2 PATCH TRANSDERMA (09:34)
[2021-10-10] MEDS: Metoprolol Succinate ER 50 MG TAB.ER.24H 150 MG PO (09:34)
[2021-10-10] MEDS: 0.9 % Sodium Chloride Flush 3 ML SYRINGE IVFLUSH (09:35)
--- NOTE | 2021-10-10 09:56 | MHC.CM.PN ---
pt declined by [facility] family notified of dc today at 12:00 to [facility]
--- NOTE | 2021-10-10 10:29 | P.DS_ITS ---
DS: Providers Provider Date of Service: 10/10/21 Date of admission: 10/07/21 13:39 Primary care physician: Jaren Radford MD DS: Diagnosis Discharge Diagnosis (1) Physical deconditioning: Status: Acute (2) Acute metabolic encephalopathy: Status: Acute (3) Pneumonia: Status: Acute (4) Displacement of Clarke catheter: Status: Acute DS: Summary Hospital Course Hospital Course: Admission note HPI An 86 years old male with PMH of aortic stenosis, HLD, bladder CA, bowel resection, nephrostomy tube placement among others who presents to the hospital from rehab facility for altered mentation.? The patient reports that he went to sleep last night and around 01:30 the staff came in to change for him but he was difficult to awake.? They tried in the morning and they were really concerned about his safety so they decided to call EMS to bring him to the hospital.? In the emergency he was noted to be alert, interactive and oriented to self and place.? He reports some difficulty breathing but no coughing, fever or chills.? He reports mild hematuria and denies any abdominal pain, nausea, vomiting or change in his bowel habit.? Chest x-ray concerning for possible pneumonia.? Admitted for further evaluation and treatment. Hospital course The patient was admitted to the hospital for altered mentation incident. Evaluation in the emergency was concerning for possible pneumonia. Urine looked dirty but urine culture remained negative. He was treated with IV antibiotics of ceftriaxone with good response and weaned down the oxygen which she uses usually at bedtime. Blood cultures remain negative. To be discharged on Ceftin for 2 more days to finish total of 5. Is altered mentation code be related to higher dose of gabapentin at bedtime. Dose was decreased to 200 mg at night and the patient was waking up in the morning easily. Urology so the patient and removed the nephrostomy tube. Clarke catheter was advanced as was noticed to be out of position by CT scan. PT, OT evaluated the patient with recommendation for short-term rehab. Time Spent with Patient Time attestation: Total time spent providing and/or coordinating discharge services: Discharge coordination time: Greater than 30 minutes Quality: Stroke Does the patient have a stroke diagnosis?: No Physical Exam Vital Signs: Vital Signs: Last Vital Signs Temp 97.3 F 10/10/21 09:21 Pulse 77 10/10/21 09:34 Resp 20 10/10/21 09:21 BP 144/68 H 10/10/21 09:34 Pulse Ox 99 10/10/21 09:21 Oxygen Flow Rate 2 10/07/21 09:27 BMI result Body Mass Index 28.4 Const: Other: Constitutional : Alert, oriented to self and place, not in distr ess Neck : Normal inspection, Supple Cardiovascular : RRR, S1 S2, no lower extremity edema Respiratory : Fair bilateral air entry, right-sided basal crackles, wheezes or rhonchi, on oxygen supplement Gastrointestinal: soft, lax, Normal bowel sounds, Non tender Skin : Warm, Dry, nephrostomy tube on the left side removed Neurological : Alert & oriented x2, No focal deficit DS: Data Data Completed and Pending Labs on day of discharge: Preliminary micro results at discharge 10/07/21 10:46 Blood Culture - Preliminary Blood - Venous No growth after 48 hours. 10/07/21 10:46 Blood Culture - Preliminary Blood - Venous No growth after 48 hours. 10/07/21 Unknown Urine Culture - Preliminary Urine Catheterized - Clarke Catheter Culture in progress. Discharge Plan Discharge Patient Disposition: [facility] Discharge Diagnosis: pneumonia Referrals: [facility] [Other] - 1 Week Jaren Radford MD [Primary Care Provider] - 1 Week Discharge Medications: New gabapentin 100 mg Capsule 200 mg PO BEDTIME 30 Days Qty: 60 RF: 0 cefuroxime axetil 250 mg tablet 250 mg PO Q12H Qty: 4 RF: 0 Continued sennosides-docusate sodium [Colace 2-In-1] 8.6-50 mg Tablet 1 tab-cap PO BEDTIME PRN (Reason: Constipation) RF: 0 oxycodone-acetaminophen [Percocet] 5-325 mg Tablet 1 tab PO Q8H PRN (Reason: Pain) RF: 0 pravastatin 20 mg Tablet 20 mg PO BEDTIME RF: 0 [place] 3 1,000 mg PO DAILY RF: 0 docusate sodium 100 mg Capsule 100 mg PO BID RF: 0 metoprolol succinate 50 mg Tablet Extended Release 24 Hr 150 mg PO DAILY RF: 0 tamsulosin 0.4 mg Capsule 0.4 mg PO DAILY RF: 0 pantoprazole 40 mg Tablet,Delayed Release (Dr/Ec) 40 mg PO DAILY RF: 0 finasteride 5 mg Tablet 5 mg PO DAILY RF: 0 apixaban 5 mg Tablet 5 mg PO BID RF: 0 ascorbic acid (vitamin C) 1,000 mg tablet 1 g PO DAILY 90 Days Qty: 90 RF: 1 methenamine hippurate 1 gram tablet 1 g PO BID 90 Days Qty: 180 RF: 1 Discontinued gabapentin 400 mg Tablet 800 mg PO BEDTIME RF: 0 Discharge Orders: Discharge Order (Routine); Ordered 10/10/21 Ordered By: Keara Stinson Diet: advance to usual diet Activity on Discharge: As tolerated Stand Alone Forms: Patient Portal Discharge page Care Plan Goals: Read below Health Concerns: Read below Plan of Treatment: Read below Assessment: You were admitted to the hospital for evaluation of altered mentation. Chest x- ray was concerning for possible infection. You were treated with IV antibiotics with good response. Your gabapentin dose was decreased from 800 mg to 200 mg as it might be the reason for the difficulty to waking up in the morning. continue Ceftin for 2 more days Gabapentin decreased to 200 mg at bedtime
[2021-10-10 12:10] LABS: COVID-19 Test Negative (Negative); IDNOW Serial# 08D9AD1C
== END 2021-10-10 13:51 | disposition intermediate care facility (04) | DRG 193 ==
LOC: HO.ED 12:04 → HO.EDOVER 14:17 → HO.IMC 10-10 07:12
PROVIDERS: Admitting Provider Student in an Organized Health Care Education/Training Program; Emergency Provider Emergency Medicine; PCP Family Medicine; Visit Provider Student in an Organized Health Care Education/Training Program
DX: J18.9 Pneumonia, unspecified organism (principal); G92.8 Other toxic encephalopathy; T83.021A Displacement of indwelling urethral catheter, initial encounter; I48.91 Unspecified atrial fibrillation; T42.6X5A Adverse effect of other antiepileptic and sedative-hypnotic drugs, initial encounter; Y92.9 Unspecified place or not applicable; Z85.51 Personal history of malignant neoplasm of bladder; Z20.822 Contact with and (suspected) exposure to COVID-19; Z87.440 Personal history of urinary (tract) infections; Z87.891 Personal history of nicotine dependence; Z79.01 Long term (current) use of anticoagulants; Z79.891 Long term (current) use of opiate analgesic; Z79.899 Other long term (current) drug therapy
CPT/HCPCS: 36415; 70450; 71250; 74176; 80048; 80053; 80162; 81001; 82248; 82803; 83605; 83690; 83735; 84484; 85025; 85027; 85610; 85730; 86850; 86900; 86901; 87040; 87086; 87088; 87633; 87635; 93005; 96361; 96365; 96367; 97162; 99285; J0696; J2185; J3370

== ENCOUNTER → 2022-01-06 09:37 | Outpatient (BNVA) | payer MEDICARE, OTHER, SELFPAY | PROVIDERS: PCP Family Medicine; Visit Provider Urology | DX: R33.9 Retention of urine, unspecified (principal) | CPT/HCPCS: 51700; 51798; 99212 ==

== ENCOUNTER → 2022-01-24 10:54 | Outpatient (BNVA) | payer MEDICARE, OTHER, SELFPAY | PROVIDERS: PCP Family Medicine; Visit Provider Urology | DX: N40.0 Benign prostatic hyperplasia without lower urinary tract symptoms (principal); N42.0 Calculus of prostate; C67.9 Malignant neoplasm of bladder, unspecified | CPT/HCPCS: 51798; 99212 ==

== ENCOUNTER 2022-09-19 11:08 | Outpatient (REF) | payer MEDICARE, OTHER, SELFPAY | END 2022-09-19 11:09 | disposition home or self-care (01) | LOC: HO.LAB 11:08 | PROVIDERS: Visit Provider Urology | DX: R33.9 Retention of urine, unspecified (principal); N40.1 Benign prostatic hyperplasia with lower urinary tract symptoms; C67.9 Malignant neoplasm of bladder, unspecified | CPT/HCPCS: 99212 ==

== ENCOUNTER 2023-03-20 12:59 | Outpatient (REF) | payer MEDICARE, OTHER, SELFPAY ==
[2023-03-20 16:51] LABS: Urine Cytology See Pathology rpt
== END 2023-03-20 13:00 | disposition home or self-care (01) ==
LOC: HO.LAB 12:59
PROVIDERS: PCP Family Medicine; Visit Provider Urology
DX: C67.9 Malignant neoplasm of bladder, unspecified (principal); R33.9 Retention of urine, unspecified
CPT/HCPCS: 52000; 88112; 99212

== ENCOUNTER 2024-04-16 11:04 | Outpatient (REF) | payer MEDICARE, OTHER, SELFPAY | END 2024-04-16 11:05 | disposition home or self-care (01) | LOC: HO.LAB 11:04 | PROVIDERS: PCP Family Medicine; Visit Provider Urology | DX: C67.9 Malignant neoplasm of bladder, unspecified (principal); R33.9 Retention of urine, unspecified | CPT/HCPCS: 52000; 81003; 88121; 99212 ==

== ENCOUNTER 2024-04-16 11:04 | Outpatient (AMB) | payer MEDICARE, OTHER, SELFPAY ==
--- NOTE | 2024-04-16 11:06 | MHC.OFFVIS ---
Intake Visit Reasons: 1Y Cysto(Bladder C) Intake Note: Patient is present for Cystoscopy Urology Med: Finasteride, Methenamine, Tamsulosin Antibiotic Allergy: None Blood Thinner: Apixaban Urine will be sent for cytology Disposable Cystoscope LOT#:[id number] Exp:11/22/26 Allergies No Known Allergies Allergy (Verified 04/16/24 11:06) HPI Comments Details: Tirso is a very pleasant male. He is a patient of Dr Radford. He is seen for the following urologic condition - superficial bladder cancer - prostate stones Cystoscopy with mucosal changes consistent with treatment effect Continue effective bladder emptying Bladder diverticulum dome Otherwise stable Twelve month follow-up Currently living in house with support Superficial bladder cancer Prior superficial bladder cancer. Had followed with Dr. 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 Aortic stenosis CLAUDE (obstructive sleep apnea) Lumbar spinal stenosis Rheumatoid arthritis GERD (gastroesophageal reflux disease) HTN (hypertension) Bilateral cataracts Osteoporosis MRSA (methicillin resistant Staphylococcus aureus) Hyperlipidemia Gout Bladder cancer Recurrent UTI (urinary tract infection) Gross hematuria Benign prostatic hyperplasia with lower urinary tract symptoms Poor urinary stream Malignant neoplasm of dome of urinary bladder Surgical History Hx of tonsillectomy Hx of appendectomy Hx of colonoscopy History of left knee replacement History of back surgery Status post reverse total arthroplasty of left shoulder History of total right knee replacement Social History Household Members: Other Household Members Other:: son Housing: Snf Are you a primary hospice care transitions coordinator to a significant other at home: No Do you presently have visiting nurse or other home services: No Alcohol intake: never Patient Tobacco Use Status: Former Tobacco user Tobacco use type: Cigarette e-Cigarette/Vaping Use: Former Use Current occupational status: retired Review of Systems Const Denies chills and Denies fever(s) Card Reports no additional complaints and Denies syncope Resp Denies cough GI Denies abdominal pain and Denies heartburn Reports as per HPI and Denies change in libido Neuro Denies syncope Psych Denies change in libido Endo Denies change in libido Physical Exam Const General: cooperative, healthy appearing, comfortable and no acute distress Orientation/consciousness: patient oriented x3 HEENT Face and sinus: Yes normal facial exam Mouth: moist mucous membranes Neck Neck: Yes normal visual inspection, Yes full ROM and Yes trachea midline Chest Chest palpation & inspection: normal inspection of the chest Resp Effort & Inspection: normal respiratory effort, able to speak in complete sentences and no respiratory distress GI Inspection: Yes normal to inspection Back/Spine/Pelvis Cervical Spine: normal cervical lordosis Thoracic/Lumbar Spine: thoracic and lumbar spine normal to inspection Skin General skin exam: no rashes or lesions noted Neuro General: patient oriented x3, gait normal, tone normal and moves all extremities Extrem General: Yes normal to inspection and Yes capillary refill normal Office Procedures Cystoscopy Consent Discussed risk and benefit or proposed procedure with the patient. Information consent for procedure given to the patient. Discussed technical aspects, risks, benefits and alternatives in full. Addressed all of the patient's questions and concerns regarding the procedure. The patient demonstrated knowledge and understanding. They wish to proceed with this procedure. Preparation The patient was prepped in the usual manner. A inspector floor was present and in the room. Genitalia was prepped with betadine solution in a sterile manner. Lidocaine Jelly 2% was placed into the urethra and 16Fr flexible Olympus cystoscope was inserted into the meatus after adequate lubrication. [id number] DISPOSABLE SCOPE URO-G FLEXIBLE SCOPE Procedure code (CPT) selection complete Office Meds lidocaine HCl 2 % mucosal jelly in applicator Performing Provider: Kris Crenshaw MD Performing Location: [facility] [place] [facility] Administered by: Gold Barnett LPN on 04/16/24 11:29 Dose Route Admin Location Dispensed Lot Number Expiration Date ND [employer] 10 mL intra-urethral 10 mL nitrofurantoin monohydrate/macrocrystals 100 mg capsule Performing Provider: Kris Crenshaw MD Performing Location: [facility] [place] [facility] Administered by: Gold Barnett LPN on 04/16/24 11:29 Dose Route Admin Location Dispensed Lot Number Expiration Date NDC [employer] 100 mg PO 1 cap naproxen 500 mg tablet Performing Provider: Kris Crenshaw MD Performing Location: [facility] [place] [facility] Administered by: Gold Barnett LPN on 04/16/24 11:29 Dose Route Admin Location Dispensed Lot Number Expiration Date NDC [employer] 500 mg PO 1 tab Results AMB Urinalysis, Automated UA Leukoctes 70 Destiny/uL Last Edit by Rossy Potts CMA on 04/16/24 11:26 UA Nitrite Negative Last Edit by Rossy Potts CMA on 04/16/24 11:26 UA Urobilinogen 0.2 mg/dL Last Edit by Rossy Potts CMA on 04/16/24 11:26 UA Protein 0 mg/dL Last Edit by Rossy Potts CMA on 04/16/24 11:26 UA pH 6.0 Last Edit by Rossy Potts CMA on 04/16/24 11:26 UA Blood 0 Bari/uL Last Edit by Rossy Potts CMA on 04/16/24 11:26 UA Specific [place] 1.015 Last Edit by Rossy Potts CMA on 04/16/24 11:26 UA Ketone Negative Last Edit by Rossy Potts CMA on 04/16/24 11:26 UA Bilirubin 0 mg/dL Last Edit by Rossy Potts CMA on 04/16/24 11:26 UA Glucose 0 mg/dL Last Edit by Rossy Potts CMA on 04/16/24 11:26 Results Reviewed Results Reviewed: Laboratory Last Values Urine pH (Auto) 6.0 04/16/24 11:23 Specific [place] (Auto) 1.015 04/16/24 11:23 Urine Protein (Auto) 0 mg/dL 04/16/24 11:23 Glucose (UA)(Auto) 0 mg/dL 04/16/24 11:23 Urine Ketones (Auto) Negative 04/16/24 11:23 Urine Blood (Auto) 0 Bari/uL 04/16/24 11:23 Urine Nitrite (Auto) Negative 04/16/24 11:23 Urine Bilirubin (Auto) 0 mg/dL 04/16/24 11:23 Urine Urobilinogen (Auto) 0.2 mg/dL 04/16/24 11:23 Leukocyte Esterase (Auto) 70 Destiny/uL 04/16/24 11:23 Assessment & Plan Assessment & Plan (1) Urinary retention with incomplete bladder emptying: Code(s): R33.9 - Retention of urine, unspecified Category: Medical (2) Bladder cancer: Code(s): C67.9 - Malignant neoplasm of bladder, unspecified Category: Medical Plan 12 month follow-up cystoscopy Orders: Orders FISH Bladder Cancer 04/16/24 C67.9 - Malignant neoplasm of bladder, unspecified AMB Urinalysis Automated 04/16/24 Z13.9 - Encounter for screening, unspecified AMB Cystoscopy 04/16/24 C67.9 - Malignant neoplasm of bladder, unspecified, N21.0 - Calculus in bladder, N40.1 - Benign prostatic hyperplasia with lower urinary tract symptoms, R31.0 - Gross hematuria, R33.9 - Retention of urine, unspecified Patient Instructions: Imaging studies, laboratory and physical exam results were discussed and reviewed in detail. No major barriers to patient understanding were identified. An opportunity to ask questions regarding the treatment plan was provided. All questions were answered. The patient expressed understanding and agreement with the above treatment plan. The patient is aware they should contact our office by phone for worsening of their current condition or the appearance of new urologic symptoms. Compliance is encouraged with any medications and followup testing that is ordered. It is a privilege to participate in the urologic care of your patient. If you have any questions or concerns regarding treatment for the above conditions, or other urologic issues, please do not hesitate to contact me. The office telephone contact is [phone]. This note is constructed using voice recognition software. While every effort has been made to ensure accuracy business transformation analyst errors may have been included. Yours sincerely, Dr Kris Crenshaw MD, [facility] - Urology Providers of Expert, Compassionate Care for the Genitourinary System Coding Level of Care Code Est Pt Level 4 (80111) Diagnoses Urinary retention with incomplete bladder emptying R33.9 Bladder cancer C67.9 CPT Codes Cystoscopy - CPT: 28518-[id number] ([id number])
--- OUTSIDE RECORDS SUMMARY | 2024-04-17 08:25 | XMS_ITS | Patient Health Record ---
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 Referred Provider Papo Valdes Referred Address [address],[place], [place],[address], Referred Provider Specialty Podiatry Referral Priority Routine MEDICATIONS Medication SIG (Take, Route, Frequency, Duration) Notes Start Date End Date Status Diclofenac Sodium 3 % 1 application to affected area Transdermal Twice a day for 30 day(s) 06/03/2018 Not-Taking Voltaren 1 % as directed External ly apply bid to toes for 30 days Active Keflex 500 MG 1 capsule Orally rob ry 12 hrs for 10 day(s) 03/01/2023 Active Gabapentin 400 MG 1 capsule Orally Twi ce a day for 30 day(s) Active Colcrys 0.6 MG TAKE 1 TABLET BY SHARA TH ONCE A DAY . Active Diclofenac Sodium 1 % Transdermal Active Norvasc Active Allopurinol Active Keflex 500 MG 1 capsule Orally rob ry 12 hrs for 10 day(s) 10/25/2015 Not-Taking Ultram Not-Taking [employer] . . . refurbish orthos es with new soft met pads and soft topcover for . 12/21/2015 Not-Taki ng Pravastatin Sodium A ctive Doxycycline Monohydrate 100 MG 1 capsule Orally Once a day for 10 days Active Plavix Active Lidocaine 5 % as directed Externally Active Omeprazole Active Minocycline HCl Acti ve Colchicine 0.6 MG 1 tablet Orally Once a day for 30 days 09/13/2016 Not-Taking amLODIPine Besylate 10 MG 1 tablet Orally Once a day Active [employer] . . . refurbish orthos es with new soft met pads and soft topcover for . Not-Taki ng CeleBREX Active [employer] . . . refurbish orthos es with new soft met pads and soft topcover for . Not-Taki ng [employer] . . . refurbish orthos es with new soft met pads and soft topcover for . Not-Taki ng Percocet 5-325 MG 1 tablet as needed Orally every 6 hrs PRN Active Tamsulosin HCl 0.4 MG 1 capsule 30 minut es after the same meal each day Orally Once a day Active Vitamin D Active IMMUNIZATIONS Vaccine Route Administration Date Status Comme nts COVID-19 Moderna Vaccine Unknown 07/09/2022 Administered 2020,2020 2020,2021 Influenza Unknown 07/09/2022 Administered SOCIAL HISTORY Tobacco Use: Social History Observation Description Date Details (start date - stop date) Never Smoker NA - NA Sex Assigned At : Social History Observation Description Sex Assigned At Unknown Tobacco Use/Smoking Question Answer Notes Are you a: nonsmoker Additional Findings: Tobacco Non-User Current no n-smoker Alcohol Screen Question Answer Notes Did you have a drink containing alcohol in the p ast year? Yes Points 0 Interpretation Negative Tobacco use other than smoking: Question Answer Notes Are you an other tobacco user? No PROBLEMS Problem Type ICD Code Onset Dates Problem Status W/U Status Risk SNOMED Code Notes Problem Pain in left toe(s) (M79.675) Active confirmed Pain in limb (50109064) Problem Non-pressure chronic ulcer of other part of left foot with fat layer exposed (L97.522) Active confirmed Chronic ulcer o f foot (283854317) Problem Primary osteoarthritis , left ankle and foot (M19.072) Active confirmed Localized, prim rayne osteoarthritis of the ankle and/or foot (966153445) Problem Non-pressure chronic ulcer of other part of left foot limited to breakdown of skin (L97.521) Active confirmed Problem Other hammer toe(s) (acquired), right foot (M20.41) Active confirmed Acquired hammer toe of right foot (1521716499564558) Problem Idiopathic gout, 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) Active confirmed Primary gout (20228806) VITAL SIGNS Height 5 ft 8 in in 01/17/2024 Weight 205 lbs 01/17/2024 BMI 31.17 kg/m2 01/17/2024 PROCEDURES Procedure Date Ordered Date Performed Result Body Sit e 58275-QZBKSDS SKIN/TISSUE 01/17/2024 N/A Encounters Encounter Location Date Provider Diagnosis [address] [address] 05/09/2023 Papo Valdes [address] [address] 05/21/2023 Papo Valdes Tinea unguium B35.1 ; Pain in right toe(s) M79.674 ; Pain in left toe(s) M79.675 ; Ingrowing nail L60.0 ; Primary osteoarthritis, left ankle and foot M19.072 ; Pain in left foot M79.672 ; Neuralgia and neuritis, unspecified M79.2 and Other hammer toe(s) (acquired), right foot M20.[address] [address] 08/01/2023 Papo Valdes Cellulitis of left toe L03.032 ; Abscess of toe of left foot L02.612 ; Tinea unguium B35.1 ; Pain in left toe(s) M79.675 ; Primary osteoarthritis, left ankle and foot M19.072 ; Ingrowing nail L60.0 and Pain in left foot M79.[address] [address] [facility] [address] [place] [address] 08/15/2023 Papo Valdes Non-pressure chronic ulcer of other part of left foot with fat layer exposed L97.522 and Non-pressure chronic ulcer of other part of right foot with fat layer exposed L97.[address] [place] [address] [facility] [address] 09/04/[address] [address] 09/10/[address] [address] 01/17/2024 Papo Valdes Non-pressure chronic ulcer of other part of left foot with fat layer exposed L97.522 ; Skin disease L98.9 ; Cellulitis of left toe L03.032 ; Pain in left toe(s) M79.675 ; Cellulitis of left toe L03.032 ; Primary osteoarthritis, left ankle and foot M19.072 and Pain in left foot M79.672 ASSESSMENTS Encounter Date Diagnosis Assessment Notes Treatment Notes Treatment Clinical Notes 05/21/2023 Tinea unguium (ICD-10 - B35.1) 05/21/2023 Pain in right toe(s) (ICD-10 - M79.674) 08/01/2023 Cellulitis of left toe (ICD-10 - L03.032) 08/15/2023 Non-pressure chronic ulcer of other part of left foot with fat layer exposed (ICD-10 - L97.522) 01/17/2024 Non-pressure chronic ulcer of other part of left foot with fat layer exposed (ICD-10 - L97.522) 01/17/2024 Skin disease (ICD-10 - L98.9) 01/17/2024 Cellulitis of left toe (ICD-10 - L03.032) 08/01/2023 Abscess of toe of left foot (ICD-10 - L02.612) 08/15/2023 Non-pressure chronic ulcer of other part of right foot with fat layer exposed (ICD-10 - L97.512) 05/21/2023 Pain in left toe(s) (ICD-10 - M79.675) 05/21/2023 Ingrowing nail (ICD-10 - L60.0) 05/21/2023 Primary osteoarthritis, left ankle and foot (ICD-10 - M19.072) 08/01/2023 Tinea unguium (ICD-10 - B35.1) 08/01/2023 Pain in left toe(s) (ICD-10 - M79.675) 01/17/2024 Pain in left toe(s) (ICD-10 - M79.675) 01/17/2024 Cellulitis of left toe (ICD-10 - L03.032) 08/01/2023 Primary osteoarthritis, left ankle and foot (ICD-10 - M19.072) 05/21/2023 Pain in left foot (ICD-10 - M79.672) 08/01/2023 Ingrowing nail (ICD-10 - L60.0) 05/21/2023 Neuralgia and neuritis, unspecified (ICD-10 - M79.2) 01/17/2024 Primary osteoarthritis, left ankle and foot (ICD-10 - M19.072) 08/01/2023 Pain in left foot (ICD-10 - M79.672) 01/17/2024 Pain in left foot (ICD-10 - M79.672) 05/21/2023 Other hammer toe(s) (acquired), right foot (ICD-10 - M20.41) PLAN OF TREATMENT Pending Test Test Name Order Date X ray : Foot, left 3V 06/10/2012 X ray : Foot, left 3V 11/23/2022 28149-USXXGRU NAIL, 6 OR MORE 12/03/2017 98375-YNDPEEF NAIL, 6 OR MORE 03/04/2018 06821-VULCPEA NAIL, 6 OR MORE 06/28/2016 66176-SWKHYNB NAIL, 6 OR MORE 09/13/2016 48971-AOORZVK NAIL, 6 OR MORE 12/04/2016 02573-GIMXYCV NAIL, 6 OR MORE 05/31/2017 30448-OYDQTWQ NAIL, 6 OR MORE 09/03/2017 50093-UFCELGY NAIL, 6 OR MORE 06/03/2018 83381-FCKIZWX NAIL, 6 OR MORE 08/28/2018 97679-LSJCQXC NAIL, 6 OR MORE 04/10/2013 42552-MCQNGZE NAIL, 6 OR MORE 07/10/2013 10442-WNBMMUQ NAIL, 6 OR MORE 10/09/2013 20254-TGQJOIQ NAIL, 6 OR MORE 06/16/2015 00331-BRTQSAA NAIL, 6 OR MORE 01/14/2014 95182-FNAYOPB NAIL, 6 OR MORE 04/15/2014 26512-PRHVVPP NAIL, 6 OR MORE 08/11/2014 95878-WYUHTPY NAIL, 6 OR MORE 12/09/2014 94901-YSRMMRJ NAIL, 6 OR MORE 03/18/2015 27096-VBLTTZB NAIL, 6 OR MORE 06/23/2015 82566-AKKXWPG NAIL, 6 OR MORE 09/30/2015 81340-KFAVTAF NAIL, 6 OR MORE 12/21/2015 97139-LDRIDKF NAIL, 6 OR MORE 03/23/2016 48639-HAXRNVU NAIL, 1-5 01/08/2013 70221-Wpypwyhs Plate 04/10/2013 90048-Ydqvuvaw Plate 10/09/2013 21564-Iicrrlpw Plate 07/10/2013 38835-Nmldxkuj Plate 08/22/2012 63732-Awlhhpyu Plate 06/10/2012 98452-Bielrenj Plate 01/08/2013 49940-Bjgoihwu Plate 09/13/2011 33031-Nfngttmk Plate 12/21/2011 60724-Jsqdtbeb Plate 03/28/2012 06265-Nfynycdx Plate 10/25/2015 28493-Gypiafpj Plate 06/23/2015 35011-Juhzguly Plate 03/18/2015 53223-Mfmguwjy Plate 12/09/2014 84888-Pllxyilw Plate 08/11/2014 57760-Scjehjaz Plate 04/15/2014 10323-Iqwowqhl Plate 01/14/2014 65198-Rafqvznk Plate 03/04/2018 47181-Xwhwztdf Plate Each Additional 10/2011 03875-Kxxxtybn Plate Each Additional 58994-ATSFTVY SKIN/TISSUE 03/01/2023 50328-QNGFAEE SKIN/TISSUE 01/17/2024 63123, J0702- INJECT or DRAIN, JOINT/BUR SA 06/03/2018, J0702- INJECT or DRAIN, JOINT/BUR SA 09/03/201772102, T7848-CJHIC/INJECT, JOINT/BURSA 0 03/01/2017 81639-SENGWTFF OF HEMATOMA/FLUID 018 24991-LXIRQPPT OF HEMATOMA/FLUID 018 19260, J0702- Neuroma/Injection 09/13/20 16 38771, J0702- Neuroma/Injection 07/21/20 15 81414, J0702- Neuroma/Injection 03/28/20 12 33133, J0702- Neuroma/Injection 08/22/20 12 00686, J0702- Neuroma/Injection 03/23/20 16 Insurance Providers Payer Name Payer Address Payer Phone Subscriber Number Group Number Insured Name Patient Relationship to Insured Coverage Start Date Coverage End Date [employer] [address] [place] [address] [id number] Tirso Atkinson Self - patient is the insured MEDICAL (GENERAL) HISTORY Medical History History ICD Code transfusions osteoporosis mumps measles hypertension Gout gall bladder problems chicken pox back, hip, knee pain Arthritis Surgical History Surgery Date(Month/Year) back surgery 2000, 2008 jaw surgery 1974 knee replacement 2009 shoulder surgery 2004 back surgery May and June 2011 left shoulder removed 10/2012 left shoulder replaced 05/2013 left shoulder replaced 06/2013 left arm 11/09/14 watchman procedure afib 09/2022 Hospitalization History Reason Date(Month/Year) Patient was admitted to [facility] for infection in his shoulder pain. 10/31/12 [facility] ultrasound of kidneys 08/04 Left Arm Surgery 11/09/14 [facility] /Nose Bleed [facility]- Echocardiogram 02/2017 [facility] - UTI 08/2018 [facility]- fell 2020
== END 2024-04-16 11:58 | disposition home or self-care (01) ==
LOC: HO.HUSH 11:04
PROVIDERS: PCP Family Medicine; Visit Provider Urology
DX: R33.9 Retention of urine, unspecified (principal); N21.0 Calculus in bladder; C67.9 Malignant neoplasm of bladder, unspecified; N40.1 Benign prostatic hyperplasia with lower urinary tract symptoms; R31.0 Gross hematuria; Z13.9 Encounter for screening, unspecified
CPT/HCPCS: 52000; 99214

== ENCOUNTER 2025-04-14 11:01 | Outpatient (REF) | payer MEDICARE, OTHER, SELFPAY | END 2025-04-14 11:02 | disposition home or self-care (01) | LOC: HO.LAB 11:01 | PROVIDERS: PCP Family Medicine; Visit Provider Urology | DX: C67.9 Malignant neoplasm of bladder, unspecified (principal); N40.1 Benign prostatic hyperplasia with lower urinary tract symptoms; R31.0 Gross hematuria | CPT/HCPCS: 52000; 81003; 88121; 99212 ==

== ENCOUNTER 2025-04-14 11:01 | Outpatient (AMB) | payer MEDICARE, OTHER, SELFPAY ==
--- OUTSIDE RECORDS SUMMARY | 2025-04-10 07:10 | XMS_ITS | Encounter Summary ---
Author Name [facility] [facility] [place] [facility] [place] Address [address] [place] [address] Care Team Providers Care Protective Services Case Worker Name Role Phone CT HARDWICK Primary Care Provider Unavailabl e Insurance Providers: All historical and current Section Date Range: From patient's date of to the date document was created. This section includes the names of all active insurance providers for the patient. Insurance Provider Type of Coverage Plan Name Start of Policy Coverage End of Policy Coverage Group Number Member ID Insurance Provider's Telephone Number Policy Roberto's Name Patient's Relationship to Policy Roberto [facility] Sep 21, 2003 [id number] TRENTON LAINEZ PATIENT MEDICARE ([facility]) MEDICARE () PART B Aug 22, 2003 PART B [id number] TRENTON LAINEZ PATIENT MEDICARE ([facility]) MEDICARE () PART B Aug 22, 2003 PART B [id number] [phone] TRENTON LAINEZ PATIENT MEDICARE (WNR) MEDICARE (M) PART B Aug 22, 2003 PART B [id number] [phone] TRENTON LAINEZ PATIENT MEDICARE (WNR) MEDICARE (M) PART B Aug 22, 2003 PART B [id number] [phone] TRENTON LAINEZ PATIENT MEDICARE (WNR) MEDICARE (M) PART A Jun 22, 2001 PART A [id number] [phone] TRENTON LAINEZ PATIENT MEDICARE (WNR) MEDICARE (M) PART A Jun 22, 2001 PART A [id number] [phone] TRENTON LAINEZ PATIENT MEDICARE (WNR) MEDICARE (M) PART A Jun 22, 2001 PART A [id number] TRENTON LAINEZ PATIENT MEDICARE (WNR) MEDICARE (M) PART A Jun 22, 2001 PART A [id number] [phone] TRENTON LAINEZ PATIENT Selected Encounter This section includes the information on record at [place] for the Encounter. Date/Time Encounter Type Encounter Description Reason Pro vider Source Apr 10, 2025 11:10 AM Outpatient Encounter TELEPHONE TRIAGE IHE Encounter Template Text not used by [place] Plan of Treatment: Future Appointments (+ 6 months) and Future Tests (+/- 45 days) The Plan of Treatment section includes future care activities for the patient from all [place] treatmentfacilities. This section includes future appointments and future orders which are active, pending or scheduled. Future Appointments This section includes appointments that were scheduled to occur 6 months from the date of the Encounter, up to a maximum of 20 appointments. The data comes from all [place] treatment facilities. Appointment Date/Time Appointment Type Appointme nt Facility Name Apr 13, 2025 11:00 AM AM[place]ULATORY - [place]ICINE [place] [facility] [place] [facility] Apr 13, 2025 11:30 AM AMBULATORY - [place]ICINE [place] [facility] [place] [facility] Jun 10, 2025 11:00 AM AMBULATORY - [place]ICINE [place] [facility] [place] [facility] Jun 23, 2025 11:30 AM AMBULATORY - MEDICINE [facility] [place] [facility] Active, Pending, and Scheduled Orders This section includes a listing of several types of active, pending, and scheduled orders, including clinic medications orders, diagnostic test orders, procedure orders and consult orders; where the start date of the order is 45 days before the date of the Encounter or 45 days after the date of theEncounter. The data comes from all [place] treatment facilities. Test Date/Time Test Type Test Details Facility Name Apr 13, 2025 11:39 AM Consult Order PROSTHETIC S REQUEST Cons Beef P[employer]her[employer] Choice [place] [facility] [place] [facility] Apr 13, 2025 11:39 AM Consult Order DERMATOLOG Y/NHM (OUTPT) Cons [employer] [facility] [place] [facility] [place] [facility] Social History: Smoking Status (Most current) and Tobacco Use (All prior to encounter date) This section includes the most current, and the historical, smoking and tobacco- related health factors from the [place] facility where the Encounter took place. Current Smoking Status This section includes the most current smoking, or tobacco-related health factor, from the [place] facility where the Encounter took place. Date/Time Current Smoking Status Comment [facility] jason Dec 04, 2024 11:00 AM VA-TOBACCO USE [facility] Tobacco Use History This section includes a history of the smoking, or tobacco-related health factors, that were collected on or before the date of the Encounter. The data comes from the [place] facility where the Encounter took place. Date/Time Smoking Status/Tobac co Use Comment Facility Dec 04, 2024 11:00 AM VA-TOBACCO USE FORMER CIGARETTES [place] [facility] [place] [facility] Oct 11, 2023 03:30 PM VA-TOBACCO FORMER USER [place] [facility] [place] [facility] Oct 11, 2023 03:30 PM VA-TOBACCO QUIT 15 YRS OR MORE [place] [facility] [place] [facility] Aug 03, 2022 01:00 PM VA-TOBACCO FORMER USER [place] [facility] [place] [facility] Aug 03, 2022 01:00 PM VA-TOBACCO QUIT 15 YRS OR MORE [place] [facility] [place] [facility] Jul 20, 2021 03:00 PM VA-TOBACCO FORMER USER [place] [facility] [place] [facility] Jul 20, 2021 03:00 PM VA-TOBACCO QUIT 15 YRS OR MORE [place] [facility] [place] [facility] March 01, 2020 01:17 PM [facility]ACCO [facility] [place] [facility] Oct 08, 2018 11:42 AM [facility]ACCO [facility] [place] [facility] Oct 08, 2018 11:42 AM VA-TOBACCO QUIT 15 YRS OR MORE [facility] Apr 11, 2018 12:55 PM QUIT TOBACCO USE > 7 YEARS AGO [facility] [place] [facility] Apr 26, 2017 11:13 AM QUIT TOBACCO USE > 7 YEARS AGO [facility] Apr 03, 2016 01:00 PM LIFETIME NON-TOBACCO USER [facility] [place] [facility] May 08, 2005 03:04 PM HISTORY OF SMOKING Smoke free 40 years [facility] [place] [facility] May 02, 2004 03:24 PM HISTORY OF SMOKING Smoke free 38 years [facility] Apr 20, 2003 04:22 PM HISTORY OF SMOKING Smoke free 40 years [facility] Feb 10, 2002 10:02 AM QUIT TOBACCO USE > 7 YEARS AGO quit in 1966 [facility] Aug 14, 2001 08:32 AM HISTORY OF SMOKING Quit 35 yrs ago [facility] Encounter Notes: All associated encounter notes This section contains the clinical notes associated to the Encounter. Date/Time Encounter Note(s) Provider Source Apr 10, 2025 01:06 PM ADDENDUM: LOCAL TITLE: Addendum STANDARD TITLE: ADDENDUM DATE OF NOTE: APR 10, 2025@13:06:26 ENTRY DATE: APR 10, 2025@13:06:27 AUTHOR: GARY BLACKBURN EXP COSIGNER: URGENCY: STATUS: COMPLETED Adding AMSA, please call and schedule RN appointment. I can have Ct take a look in between scheduled patients. Thank you. /willow/ GARY BLACKBURN Registered Nurse Signed: 04/10/2025 13:07 Receipt Acknowledged By: 04/10/2025 13:47 /willow/ CT HARDWICK D.O. PHYSICIAN 04/10/2025 13:17 /willow/ RICK CAIN AMSA === --- Original Document --- 04/10/25 CCC: CLINICAL TRIAGE: Caller Verification Caller/Recipient Relation to Patient: Self Caller Name: TRENTON LAINEZ Emergency Contact: ROSENDO LAINEZ Triage Summary Conducted triage/discussed symptoms Utilized the Triage Tool: Yes Chief Complaint: Skin Lesion - Moles or Growths Nurse's Recommendation / WHEN: Within 2 Weeks Nurse's Recommendation / WHERE: Clinic/[facility] Patient Disposition Patient/Caregiver agrees to plan of care: Yes Nursing Plan and Disposition Referred Patient for In-Person Appt Transferred patient to Sched & Admin-Apt Transferred patient to facility [facility] Other course(s) of action Generated msg to PACT/Provider Provided guidance for worsening symptoms: *Caller/Patient* advised to call facilities [place] Clinical Contact Center or seek immediate medical attention for new or worsening symptoms Nurse Summary Nurse Summary: SITUATION: Calling with concerns that has skin cancer on top lobe of right ear x 1 month. C/o pea sized lesion that is painful, with pain ranging from 5-10/10. He does not have severe pain at this time. He has applied aloe to the lesion and it appears to have made it smaller. *See Clear Triage details below for additional +/- signs & symptoms. RN RECOMMENDATION: Triage outcome is 2 weeks. [place] was agreeable to F2F PCP appointment in that timeframe. Call warm transferred to priority scheduling to assist with setting up the appointment. Clinical Contact Center Codes Clinic/Location: V1 CWM PHONE [facility] RN Decision Support System Output: Triage Complete Triage Date: 04/10/2025, 10:58 AM Triage Note: Decision Support Tool Used: ClearTriage Protocol Used: Skin Lesion - Moles or Growths Protocol-Based Disposition: See Provider within 2 Weeks Video visit not offered Positive Triage Question: * [1] Skin growth or mole AND [2] sticks up out of the skin (elevated) AND [3] feels rough to the touch Care Advice Discussed: * Reasons To Call Back - Fever occurs - It looks infected - You become worse Negative Triage Questions: * [1] Looks infected (e.g., spreading redness, pus) AND [2] large red area (> 2 inches or 5 cm) * [1] Fever AND [2] bump is tender to touch * [1] Fever AND [2] spreading red area or streak * [1] Looks infected (e.g., spreading redness, pus) AND [2] no fever * Looks like a boil, infected sore, or deep ulcer * Caller can't describe it clearly * [1] Skin growth or mole AND [2] two sides do not look the same (i.e., asymmetric) * [1] Skin growth or mole AND [2] border is irregular or blurry * [1] Skin growth or mole AND [2] changes color, or has more than one color * [1] Skin growth or mole AND [2] larger than a pencil eraser, or increasing in size IMPORTANT: This note was created by [facility] Clinical Contact Center staff. Please do not alert the staff member by adding them as a signer for future communications. Alerts are not monitored by this user. /willow/ MICHELLE RAI RN, MSN,RNC-TNP REGISTERED NURSE Signed: 04/10/2025 11:10 Receipt Acknowledged By: 04/10/2025 13:06 /willow/ TOMASZ ORTIZ LPN License Practical Nurse 04/10/2025 13:01 /es/ GARY BLACKBURN Registered Nurse 04/10/2025 ADDENDUM STATUS: COMPLETED AMSA CALLED ON THE TELEPHONE FOR SCHEDULING BUT THE CALL WAS NOT ANSWERED,A MESSAGE WAS LEFT FOR CALLBACK. /es/ RICK CAIN AMSA Signed: 04/10/2025 13:19 GARY BLACKBURN [place] [facility] [place] [facility] Apr 10, 2025 11:10 AM RN PROGRESS NOTE: LOCAL TITLE: CCC: CLINICAL TRIAGE STANDARD TITLE: RN PROGRESS NOTE DATE OF NOTE: APR 10, 2025@11:10:22 ENTRY DATE: APR 10, 2025@11:10:22 AUTHOR: MICHELLE RAI MA EXP COSIGNER: URGENCY: STATUS: COMPLETED CCC: CLINICAL TRIAGE Has ADDENDA Caller Verification Caller/Recipient Relation to Patient: Self Caller Name: TRENTON LAINEZ Emergency Contact: ROSENDO LAINEZ Triage Summary Conducted triage/discussed symptoms Utilized the Triage Tool: Yes Chief Complaint: Skin Lesion - Moles or Growths Nurse's Recommendation / WHEN: Within 2 Weeks Nurse's Recommendation / WHERE: Clinic/[facility] Patient Disposition Patient/Caregiver agrees to plan of care: Yes Nursing Plan and Disposition Referred Patient for In-Person Appt Transferred patient to Sched & Admin-Apt Transferred patient to facility [facility] Other course(s) of action Generated msg to PACT/Provider Provided guidance for worsening symptoms: *Caller/Patient* advised to call facilities [place] Clinical Contact Center or seek immediate medical attention for new or worsening symptoms Nurse Summary Nurse Summary: SITUATION: Calling with concerns that has skin cancer on top lobe of right ear x 1 month. C/o pea sized lesion that is painful, with pain ranging from 5-10/10. He does not have severe pain at this time. He has applied aloe to the lesion and it appears to have made it smaller. *See Clear Triage details below for additional +/- signs & symptoms. RN RECOMMENDATION: Triage outcome is 2 weeks. was agreeable to F2F PCP appointment in that timeframe. Call warm transferred to priority scheduling to assist with setting up the appointment. Clinical Contact Center Codes Clinic/Location: V1 C[facility] PHONE [facility] RN Decision Support System Output: Triage Complete Triage Date: 04/10/2025, 10:58 AM Triage Note: Decision Support Tool Used: ClearTriage Protocol Used: Skin Lesion - Moles or Growths Protocol-Based Disposition: See Provider within 2 Weeks Video visit not offered Positive Triage Question: * [1] Skin growth or mole AND [2] sticks up out of the skin (elevated) AND [3] feels rough to the touch Care Advice Discussed: * Reasons To Call Back - Fever occurs - It looks infected - You become worse Negative Triage Questions: * [1] Looks infected (e.g., spreading redness, pus) AND [2] large red area (> 2 inches or 5 cm) * [1] Fever AND [2] bump is tender to touch * [1] Fever AND [2] spreading red area or streak * [1] Looks infected (e.g., spreading redness, pus) AND [2] no fever * Looks like a boil, infected sore, or deep ulcer * Caller can't describe it clearly * [1] Skin growth or mole AND [2] two sides do not look the same (i.e., asymmetric) * [1] Skin growth or mole AND [2] border is irregular or blurry * [1] Skin growth or mole AND [2] changes color, or has more than one color * [1] Skin growth or mole AND [2] larger than a pencil eraser, or increasing in size IMPORTANT: This note was created by [facility] Clinical Contact Center staff. Please do not alert the staff member by adding them as a signer for future communications. Alerts are not monitored by this user. /willow/ MICHELLE RAI, RN, MSN,RNC-TNP REGISTERED NURSE Signed: 04/10/2025 11:10 Receipt Acknowledged By: 04/10/2025 13:06 /willow/ TOMASZ ORTIZ, TREE PULLER License Practical Nurse 04/10/2025 13:01 /willow/ GARY BLACKBURN Registered Nurse 04/10/2025 ADDENDUM STATUS: COMPLETED Adding AMSA, please call and schedule RN appointment. I can have Ct take a look in between scheduled patients. Thank you. /willow/ GARY BLACKBURN Registered Nurse Signed: 04/10/2025 13:07 Receipt Acknowledged By: 04/10/2025 13:47 /willow/ CT HARDWICK D.O. PHYSICIAN 04/10/2025 13:17 /willow/ RICK AYALA 04/10/2025 ADDENDUM STATUS: COMPLETED AMSA CALLED ON THE TELEPHONE FOR SCHEDULING BUT THE CALL WAS NOT ANSWERED,A MESSAGE WAS LEFT FOR CALLBACK. /willow/ RICK AYALA Signed: 04/10/2025 13:19 04/10/2025 ADDENDUM STATUS: COMPLETED HERMELINDAA CALLED ON TELEPHONE AND SCHEDULED AN APPT SET FOR @11AM. /christina AYALA Signed: 04/10/2025 15:03 MICHELLE RAI [facility]
--- NOTE | 2025-04-14 11:01 | MHC.OFFVIS ---
Intake Visit Reasons: 1yr/Cysto Intake Note: Patient is present for Cystoscopy Urology Med: Finasteride, Methenamine, Tamsulosin Antibiotic Allergy: None Blood Thinner: Apixaban Centralized Traffic Control Operator Required: No Accompanied by: Friend Allergies No Known Allergies Allergy (Verified 04/14/25 11:13) HPI Comments Details: Tirso is a very pleasant male. He is a patient of Dr Radford. 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 Had followed with Dr. 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 Aortic stenosis CLAUDE (obstructive sleep apnea) Lumbar spinal stenosis Rheumatoid arthritis GERD (gastroesophageal reflux disease) HTN (hypertension) Bilateral cataracts Osteoporosis MRSA (methicillin resistant Staphylococcus aureus) Hyperlipidemia Gout Bladder cancer Recurrent UTI (urinary tract infection) Gross hematuria Benign prostatic hyperplasia with lower urinary tract symptoms Poor urinary stream Malignant neoplasm of dome of urinary bladder Surgical History Hx of tonsillectomy Hx of appendectomy Hx of colonoscopy History of left knee replacement History of back surgery Status post reverse total arthroplasty of left shoulder History of total right knee replacement Social History Household Members: Other Household Members Other:: son Housing: [facility] Are you a primary human services care specialist to a significant other at home: No Do you presently have visiting nurse or other home services: No Alcohol intake: never Patient Tobacco Use Status: Former Tobacco user Tobacco use type: Cigarette e-Cigarette/Vaping Use: Former Use Current occupational status: retired Office Procedures Cystoscopy Consent Discussed risk and benefit or proposed procedure with the patient. Information consent for procedure given to the patient. Discussed technical aspects, risks, benefits and alternatives in full. Addressed all of the patient's questions and concerns regarding the procedure. The patient demonstrated knowledge and understanding. They wish to proceed with this procedure. Preparation The patient was prepped in the usual manner. A anodic operator was present and in the room. Genitalia was prepped with betadine solution in a sterile manner. Lidocaine Jelly 2% was placed into the urethra and 16Fr flexible Olympus cystoscope was inserted into the meatus after adequate lubrication. Procedure Cystoscopy performed using a disposable Urovue digital 16 Sinhala cystoscope. Meatus circumcised Urethra anterior and posterior urethra normal Prostatic Urethra unremarkable - open Bladder examination with retroflexion of cystoscope Bladder Orifices normal shape and position Bladder Capacity large Trabeculations grade 2 Cellule Formation yes Diverticulum Formation dome Mucosal Erythema mild mucosal erythema Bladder Tumor None [id number] DISPOSABLE SCOPE URO-G FLEXIBLE SCOPE Procedure code (CPT) selection complete Office Meds lidocaine HCl 2 % mucosal jelly in applicator Performing Provider: Kris Crenshaw MD Performing Location: [facility] [place] [facility] Administered by: Annmarie Ndiaye RN on 04/14/25 11:27 Dose Route Admin Location Dispensed Lot Number Expiration Date NDC Field Recruiter 10 mL intra-urethral 10 mL nitrofurantoin monohydrate/macrocrystals 100 mg capsule Performing Provider: Kris Crenshaw MD Performing Location: [facility] [place] [facility] Administered by: Annmarie Ndiaye RN on 04/14/25 11:27 Dose Route Admin Location Dispensed Lot Number Expiration Date NDC Field Recruiter 100 mg PO 1 cap Assessment & Plan Assessment & Plan (1) Bladder cancer: Code(s): C67.9 - Malignant neoplasm of bladder, unspecified Category: Medical (2) Benign prostatic hyperplasia with lower urinary tract symptoms: Code(s): N40.1 - Benign prostatic hyperplasia with lower urinary tract symptoms Category: Medical Plan 12 month follow-up Orders: Orders AMB Urinalysis Automated Today Z13.9 - Encounter for screening, unspecified AMB Cystoscopy Today R31.0 - Gross hematuria Patient Instructions: This note is constructed using voice recognition software. While every effort has been made to ensure accuracy electrical design engineer errors may have been included. Imaging studies, laboratory and physical exam results were discussed and reviewed in detail. No major barriers to patient understanding were identified. An opportunity to ask questions regarding the treatment plan was provided. All questions were answered. The patient expressed understanding and agreement with the above treatment plan. The patient is aware they should contact our office by phone for worsening of their current condition or the appearance of new urologic symptoms. Compliance is encouraged with any medications and followup testing that is ordered. It is a privilege to participate in the urologic care of your patient. If you have any questions or concerns regarding treatment for the above conditions, or other urologic issues, please do not hesitate to contact me. The office telephone contact is [phone]. Sincerely, Dr Kris Crenshaw MD, M[facility] - Urology Compassionate Specialist Care for the Genitourinary System Coding Level of Care Code Est Pt Level 4 (98890) Complex EM visit Add On G2211 Diagnoses Bladder cancer C67.9 Benign prostatic hyperplasia with lower urinary tract symptoms N40.1 CPT Codes Cystoscopy - CPT: [id number] ([id number])
== END 2025-04-14 11:47 | disposition home or self-care (01) ==
LOC: HO.HUSH 11:02
PROVIDERS: PCP Family Medicine; Visit Provider Urology
DX: C67.9 Malignant neoplasm of bladder, unspecified (principal); N40.1 Benign prostatic hyperplasia with lower urinary tract symptoms; Z13.9 Encounter for screening, unspecified; R31.0 Gross hematuria
CPT/HCPCS: 52000; 99214